=== PATIENT | female | born 1950 | race Caucasian/White ===

== ENCOUNTER 2016-12-31 12:28 | Emergency (ER) | payer MEDICARE, MEDICAID ==
--- NOTE | 2016-12-31 13:04 | Emergency Department Record ---
History of Present Illness - General Chief complaint: Fatigue and Weakness Stated complaint: WEAKNESS Time Seen by Provider: 12/31/16 12:51 Source: Patient, Family Mode of Arrival: Wheelchair Limitations: No limitations - History of Present Illness Initial comments: 66 yo female presents with weakness and sweats. She denies fever. She states she was seen by her outpatient visiting physician yesterday and was told to go to the hospital immediately due to abnormal blood tests. The patient and significant other are unsure of the abnormal test be they believe it concerns infection. She is a smoker with a cough. No nausea, vomiting, diarrhea, rash, swelling, abdominal pain, chest pain. Her PCP is Dr Carr. Complaint: Generalized weakness Onset/Timin -: Days(s) Location: Generalized Consistency: Constant Improves with: None Associated Symptoms: Diaphoresis, Headaches, Nausea/vomiting, Other - [place] Coma Scale Eye Response: (4) Open spontaneously Motor Response: (6) Obeys commands Verbal Response: (5) Oriented [place] Total: 15 - Related Data Home Medications Medication Instructions Recorded Confirmed Last Taken Duloxetine HCl 60 mg PO QHS 09/16/15 12/31/16 12/30/16 Gabapentin 300 mg PO BID 09/16/15 12/31/16 12/31/16 Omeprazole [Prilosec] 20 mg PO BID 09/16/15 12/31/16 12/31/16 Ropinirole HCl [Requip] 1 mg PO QHS 09/16/15 12/31/16 12/30/16 Simvastatin [Zocor] 40 mg PO QHS 09/16/15 12/31/16 12/30/16 Melatonin 10 mg PO QHS 10/10/15 12/31/16 12/30/16 Albuterol Sulfate 0.083% [Neb] 3 ml NEB .EVERY 4-6 HOURS PRN 12/02/15 12/31/16 Unknown Hydrocodone/Acetaminophen [[place] 1 tab PO Q6H PRN 12/02/15 12/31/16 12/31/16 5mg/325mg] Loperamide HCl [Immodium] 2 mg PO TID PRN 12/02/15 12/31/16 07/03/16 Magnesium Oxide [[place]] 500 mg PO TID 12/02/15 12/31/16 12/02/15 Benazepril HCl [Lotensin] 20 mg PO DAILY 07/03/16 12/31/16 12/31/16 Metoprolol Succinate 25 mg PO DAILY 07/03/16 12/31/16 12/31/16 Previous Rx's Medication Instructions Recorded Amlodipine Besylate [Norvasc] 10 mg PO DAILY #30 tablet 12/07/15 Cyanocobalamin (Vitamin B-12) 100 mcg PO DAILY #1 tab 07/05/16 [Vitamin B-12] Folic Acid 1 mg PO DAILY #1 tablet 07/05/16 Prednisone [Prednisone 20Mg] 60 mg PO DAILY #9 tab 07/05/16 Thiamine Mononitrate [Vitamin B-1] 100 mg PO BID #2 tablet 07/05/16 Thiamine Mononitrate [Vitamin B-1] 100 mg PO DAILY #4 tablet 07/05/16 Amoxicillin/Potassium Clav 1 each PO BID #14 tablet 12/31/16 [Augmentin 875Mg/125Mg] Allergies Allergy/AdvReac Type Severity Reaction Status Date / Time aspirin AdvReac Unknown VOMITING Verified 07/03/16 23:22 NSAIDS (Non-Steroidal AdvReac Unknown VOMITING Verified 07/03/16 23:22 Anti-Inflamma Travel Screening - Travel/Exposure Within Last 30 Days Have you traveled within the last 30 days?: No - Travel/Exposure Within Last Year Have you traveled outside the [place] in the last year?: No - Additonal Travel Details Have you been exposed to anyone with a communicable illness?: No - Travel Symptoms Symptom Screening: None Review of Systems Constitutional: Reports: Chills, Night sweats, Weakness. Denies: Fever Eyes: Denies: Eye discharge, Eye pain, Photophobia, Vision change ENT: Denies: Congestion, Throat pain Respiratory: Reports: Cough, Wheezes Cardiovascular: Denies: Chest pain, Palpitations, Syncope Endocrine: Reports: Fatigue Gastrointestinal: Denies: Abdominal pain, Diarrhea, Nausea, Vomiting Genitourinary: Denies: Dyspareunia, Dysuria, Urgency Musculoskeletal: Denies: Arthralgia, Back pain, Neck pain Skin: Denies: Bruising, Change in color, Rash Neurological: Reports: Weakness. Denies: Headache, Numbness Psychiatric: Denies: Anxiety Hematological/Lymphatic: Denies: Anemia, Blood Clots, Easy bleeding, Easy bruising, Swollen glands Past Medical History - SOCIAL HISTORY Smoking Status: Current every day smoker - RESPIRATORY Hx Respiratory Disorders: Yes Hx Asthma: Yes Hx COPD: Yes Hx Sleep Apnea: Yes Hx of CPAP: Yes - CARDIOVASCULAR Hx Cardio Disorders: Yes Hx Hypertension: Yes Comment:: high cholesterol - NEURO Hx Neuro Disorders: Yes Hx Dizziness: Yes Hx Neuropathy: Yes (LLE) - GI Hx GI Disorders: Yes Hx GI Bleed: Yes Hx Reflux: Yes Hx Nausea/Vomiting: Yes Hx Ulcer: Yes - Hx Genitourinary Disorders: No Comment:: incontinence - stress and urge - ENDOCRINE Hx Endocrine Disorders: No Hx Diabetes: No Hx Thyroid Disease: No - MUSCULOSKELETAL Hx Musculoskeletal Disorders: Yes Hx Arthritis: Yes Hx Back Injury: Yes Comment:: restless legs/Lupus - PSYCH Hx Psych Problems: Yes Hx Depression: Yes - HEMATOLOGY/ONCOLOGY Hx Hematology/Oncology Disorders: Yes Hx Cancer: Yes ("vaginal" carcinoma, colon) Hx Chemotherapy: No Hx Radiation Therapy: No Hx Blood Transfusions: Yes (as a child) Family Medical History Any Significant Family History?: No Hx Anxiety: Brother/Sister Hx Cancer: Father, Mother, Brother/Sister Hx Dementia: Brother/Sister Hx Depression: Brother/Sister Hx Diabetes: Brother/Sister Hx Heart Disease: Mother Hx HTN: Mother Hx Resp Disorders: Mother, Brother/Sister Hx Stroke: Brother/Sister Physical Exam - General General Appearance: Alert, Oriented x3, Cooperative, No acute distress Limitations: No limitations - Head Head exam: Normal inspection - Eye Eye exam: Normal appearance, PERRL. negative: Conjunctival injection, Periorbital swelling - ENT ENT exam: Normal exam, Mucous membranes moist Ear exam: Normal external inspection Nasal Exam: Normal inspection Mouth exam: Normal external inspection Teeth exam: Normal inspection Throat exam: Normal inspection - Neck Neck exam: Normal inspection, Full ROM. negative: Tenderness - Respiratory Respiratory exam: Decreased breath sounds, Wheezes. negative: Normal lung sounds bilaterally - Cardiovascular Cardiovascular Exam: Regular rate, Normal rhythm, Normal heart sounds - GI/Abdominal GI/Abdominal exam: Soft. negative: Distended, Tenderness - Rectal Rectal exam: Deferred - exam: Deferred - Extremities Extremities exam: Normal inspection, Full ROM, Normal capillary refill. negative: Pedal edema, Tenderness - Back Back exam: Reports: Normal inspection, Full ROM. Denies: CVA tenderness (R), CVA tenderness (L), Muscle spasm, Rash noted, Tenderness - Neurological Neurological exam: Alert, Normal gait, Oriented X3. negative: Altered - Psychiatric Psychiatric exam: Normal affect, Normal mood. negative: Agitated, Anxious - Skin Skin exam: Dry, Intact, Normal color, Warm Course Vital Signs 12/31/16 12:47 Temperature 97.3 F L Pulse Rate 93 H Respiratory 16 Rate Blood Pressure 113/66 Pulse Ox 95 - Reevaluation(s) Reevaluation #1: Dr Carr the patients visiting physician was called. No answer. Message left. [phone] No recent labs or cultures on our system The patient is unaware of the specific tests performed or where the tests were performed. I reviewed the [facility] information site and was unable to find any current results. [facility] [place] have recent results on the patient 12/31/16 13:05 12/31/16 13:13 12/31/16 13:24 Reevaluation #2: I SW a medical center representative at [facility]. The patient had a CBC with diff, BNP, and a Uric acid performed on the the (). She does not have access to the results. No one in the lab was available. I left a message with the lab to obtain the results. No call back from the patient's PCP at this point in time from earlier message. The patient is comfortable, no distress, no clinical findings suggesting an acute process. She is afebrile, not hypoxic, no hypotensive or tachycardic. 12/31/16 14:15 12/31/16 14:20 Reevaluation #3: The patient's CBC was reviewed Mild anemia of 10.5 which is near her baseline. WBC is 5. The differential is unremarkable. No sign of acute infection on the CBC. No bands or immature cells noted. The CMP with mild hyponatremia of 131 and K 5.8 but with normal GFR and renal function (She was a difficult draw and may represent some hemolysis), mild increase in LFT She has a history of alcohol use. 12/31/16 14:24 Reevaluation #4: At this point I have exhausted possibilities for obtaining the labs from 12/28. The is not sign of infection with the patient except her cough. No fever. No sign of SBI. No indication that she will require admission to the hospital. She will be placed on antibiotics for the cough. She is to call Dr Carr tomorrow for close follow up. No called back from the [facility] lab or Dr Carr today. The chest XR demonstrates a RUL mass. One was noted in September on CT scan. The patient states she was referred to pulmonary then but did not go. I recommended again discussing this with her PCP and getting another referral as this is likely a cancer. They will call their PCP tomorrow. She is stable at PR without acute findings to recommend admission. 12/31/16 15:03 12/31/16 15:16 Medical Decision Making - Lab Data Result diagrams: 12/31/16 14:00 12/31/16 14:00 Disposition Disposition: Discharge Clinical Impression: Bronchitis, Lung mass Disposition: Home, Self-Care Condition: (1) Good Instructions: Acute Bronchitis (ED), Lung Cancer (ED) Additional Instructions: Call visiting physicians in the morning to discuss the results of your tests and the previous tests that had concerned your doctor Return if you have fever or any new concerns Augmentin twice daily You will need a referral to see a specialist regarding the lung mass you have in the right lung as this could be cancer Prescriptions: Amoxicillin/Potassium Clav [Augmentin 875Mg/125Mg] 1 each PO BID #14 tablet Forms: Patient Portal Access Time of Disposition: 15:13
[2016-12-31] MEDS: IPRATROPIUM/ALBUTEROL (0.5MG/3MG) NEB INH ONE ×2 (13:16→13:23)
[2016-12-31 14:06] LABS: BASO % 1.1 % (0-6); EOS % 2.5 % (0-6); GRAN % 75.9 % (47-80); HEMATOCRIT 31.7 % (35.0-47.0); HEMOGLOBIN 10.5 gm/dl (11.6-16.0); LYMPH % 11.3 % (16-45); MEAN CELL VOLUME 93.8 fl (81-97); MEAN CORPUSCULAR HGB CONC 33.1 g/dl (32-36); MEAN PLATELET VOLUME 9.3 fl (7.4-10.4); MONO % 9.2 % (0-9); PLATELET COUNT 301 K/uL (130-400); RED BLOOD COUNT 3.38 M/uL (3.80-5.40); RED CELL DISTRIBUTION WIDTH 19.2 % (11.5-14.5); WHITE BLOOD COUNT W/O DIFF 5.7 K/uL (4.2-12.2)
[2016-12-31 14:19] LABS: ALB/GLOB RATIO 1.3 (1.1-1.8); ALBUMIN 4.2 gm/dL (3.5-5.0); ALKALINE PHOSPHATASE 160 U/L (38-126); ALT/SGPT 68 U/L (9-52); AST/SGOT 124 U/L (14-36); BILIRUBIN,TOTAL 0.79 mg/dL (0.2-1.3); BLOOD UREA NITROGEN 12 mg/dL (7-17); C-REACTIVE PROTEIN 1.5 mg/dL (0.0-0.9); CREATININE 0.8 mg/dL (0.52-1.04); EST GLOMERULAR FILTRATION RATE > 60 ml/min; GLUCOSE,RANDOM 103 mg/dL (70-110); TOTAL PROTEIN 7.5 gm/dL (6.3-8.2)
[2016-12-31 14:26] LABS: URINE APPEARANCE CLEAR; URINE BILIRUBIN NEGATIVE (NEGATIVE); URINE BLOOD NEGATIVE (NEGATIVE); URINE COLOR YELLOW; URINE GLUCOSE (UA) NEGATIVE (NEGATIVE); URINE KETONE TRACE (NEGATIVE); URINE LEUKOCYTE ESTERASE NEGATIVE (NEGATIVE); URINE NITRITE NEGATIVE (NEGATIVE); URINE PROTEIN NEGATIVE (NEGATIVE); URINE UROBILINOGEN 0.2 E.U./dL (0.20 - 1.00)
[2016-12-31] MEDS: HYDROCODONE/APAP 7.5/325MG TABLET PO ONE (14:38)
[2016-12-31 14:45] LABS: ERYTHROCYTE SEDIMENTATION RATE 34 mm/hr (0-30)
[2016-12-31] MEDS: AMOXICILLIN/POTASSIUM CLAV 875MG/125MG TABLET PO ONE (15:19)
== END 2016-12-31 15:26 | disposition home or self-care (01) ==
LOC: ER 12:28
DX: J20.9 Acute bronchitis, unspecified (principal); R91.8 Other nonspecific abnormal finding of lung field; R11.2 Nausea with vomiting, unspecified; R51 Headache; R61 Generalized hyperhidrosis; I10 Essential (primary) hypertension; J44.9 Chronic obstructive pulmonary disease, unspecified; F17.210 Nicotine dependence, cigarettes, uncomplicated
CPT/HCPCS: 99283; 99284; 85025; 85651; 86140; 80053; 81003; 71020; 94640; G0480; 80320

== ENCOUNTER 2017-03-31 15:04 | Inpatient (IN) | payer MEDICARE, MEDICAID ==
--- NOTE | 2017-03-31 15:31 | Emergency Department Record ---
History of Present Illness - General Chief complaint: Rectal bleeding Stated complaint: RECTAL BLEEDING AND VOMITING BLOOD Time Seen by Provider: 03/31/17 15:19 Source: Patient, Family Mode of Arrival: Wheelchair Limitations: No limitations - History of Present Illness Initial comments: 66 yo female presents with a concern about blood in her stools for about one week. She reports the stool is dark. She has associated abdominal pain and vomiting. She reports a history of colon [place] with [place] [facility] She states she did not have chemo. She reports some blood in the emesis as well. The pain is lower abdomen in the midline. She does not have an oncologist and is unsure of her surgeon [place] [facility] She states she has lung cancer that her doctor has not treated yet as well. Onset/Timin -: Week(s) Radiation: None Severity scale (1-10): 9 Quality: Sharp Consistency: Constant, Intermittent Improves with: None Worsens with: None Context: History of GI bleed Associated Symptoms: Other Treatments Prior to Arrival: None - Related Data Home Medications Medication Instructions Recorded Confirmed Last Taken Gabapentin 300 mg PO BID 09/16/15 03/31/17 12/31/16 Omeprazole [Prilosec] 20 mg PO BID 09/16/15 03/31/17 12/31/16 Ropinirole HCl [Requip] 1 mg PO QHS 09/16/15 03/31/17 12/30/16 Simvastatin [Zocor] 40 mg PO QHS 09/16/15 03/31/17 12/30/16 Melatonin 10 mg PO QHS 10/10/15 03/31/17 12/30/16 Albuterol Sulfate 0.083% [Neb] 3 ml NEB .EVERY 4-6 HOURS PRN 12/02/15 03/31/17 Unknown Hydrocodone/Acetaminophen [[place] 1 tab PO Q6H PRN 12/02/15 03/31/17 12/31/16 5mg/325mg] Loperamide HCl [Immodium] 2 mg PO TID PRN 12/02/15 03/31/17 07/03/16 Magnesium Oxide [[place]] 500 mg PO TID 12/02/15 03/31/17 12/02/15 Benazepril HCl [Lotensin] 20 mg PO DAILY 07/03/16 03/31/17 12/31/16 Metoprolol Succinate 25 mg PO DAILY 07/03/16 03/31/17 12/31/16 Previous Rx's Medication Instructions Recorded Amlodipine Besylate [Norvasc] 10 mg PO DAILY #30 tablet 12/07/15 Thiamine Mononitrate [Vitamin B-1] 100 mg PO BID #2 tablet 07/05/16 Allergies Allergy/AdvReac Type Severity Reaction Status Date / Time aspirin AdvReac Unknown VOMITING Verified 07/03/16 23:22 NSAIDS (Non-Steroidal AdvReac Unknown VOMITING Verified 07/03/16 23:22 Anti-Inflamma Travel Screening - Travel/Exposure Within Last 30 Days Have you traveled within the last 30 days?: No Review of Systems Constitutional: Reports: Weakness. Denies: Chills, Fever Eyes: Denies: Eye discharge ENT: Denies: Congestion, Throat pain Respiratory: Denies: Cough, Dyspnea, Hemoptysis, Stridor, Wheezes Cardiovascular: Denies: Chest pain, Palpitations, Syncope Endocrine: Reports: Fatigue Gastrointestinal: Reports: Abdominal pain, Hematemesis, Hematochezia, Melena, Nausea, Vomiting Genitourinary: Denies: Dysuria, Frequency, Hematuria, Urgency Musculoskeletal: Denies: Arthralgia, Back pain Skin: Denies: Bruising, Change in color, Pruritus Neurological: Denies: Headache, Numbness, Weakness Psychiatric: Denies: Anxiety Hematological/Lymphatic: Denies: Blood Clots, Easy bleeding, Easy bruising, Swollen glands Past Medical History - SOCIAL HISTORY Smoking Status: Current every day smoker Alcohol Use: Occasional Drug Use: None - RESPIRATORY Hx Respiratory Disorders: Yes Hx Asthma: Yes Hx COPD: Yes Hx Sleep Apnea: Yes Hx of CPAP: Yes - CARDIOVASCULAR Hx Cardio Disorders: Yes Hx Hypertension: Yes Comment:: high cholesterol - NEURO Hx Neuro Disorders: Yes Hx Dizziness: Yes Hx Neuropathy: Yes (LLE) - GI Hx GI Disorders: Yes Hx GI Bleed: Yes Hx Reflux: Yes Hx Nausea/Vomiting: Yes Hx Ulcer: Yes - Hx Genitourinary Disorders: No Comment:: incontinence - stress and urge - ENDOCRINE Hx Endocrine Disorders: No Hx Diabetes: No Hx Thyroid Disease: No - MUSCULOSKELETAL Hx Musculoskeletal Disorders: Yes Hx Arthritis: Yes Hx Back Injury: Yes Comment:: restless legs/Lupus - PSYCH Hx Psych Problems: Yes Hx Depression: Yes - HEMATOLOGY/ONCOLOGY Hx Hematology/Oncology Disorders: Yes Hx Cancer: Yes ("vaginal" carcinoma, colon) Hx Chemotherapy: No Hx Radiation Therapy: No Hx Blood Transfusions: Yes (as a child) Family Medical History Any Significant Family History?: Yes Hx Anxiety: Brother/Sister Hx Cancer: Father, Mother, Brother/Sister Hx Dementia: Brother/Sister Hx Depression: Brother/Sister Hx Diabetes: Brother/Sister Hx Heart Disease: Mother Hx HTN: Mother Hx Resp Disorders: Mother, Brother/Sister Hx Stroke: Brother/Sister Physical Exam - General General Appearance: Alert, Oriented x3, Cooperative, No acute distress Limitations: No limitations - Head Head exam: Normal inspection - Eye Eye exam: Normal appearance. negative: Conjunctival injection, Periorbital swelling - ENT ENT exam: Normal exam Ear exam: Normal external inspection Nasal Exam: Normal inspection Mouth exam: Normal external inspection - Neck Neck exam: Normal inspection - Respiratory Respiratory exam: Normal lung sounds bilaterally. negative: Respiratory distress - Cardiovascular Cardiovascular Exam: Regular rate, Normal rhythm, Normal heart sounds Peripheral Pulses: 2+: Radial (R), Radial (L) - GI/Abdominal GI/Abdominal exam: Soft, Tenderness (tender lower, midline to left, soft abdomen ). negative: Distended, Guarding, Hernia - Rectal Rectal exam: Black stool, Heme (+) stool. negative: Fecal impaction, Hemorrhoids, Mass, Tenderness - exam: Deferred - Extremities Extremities exam: Normal inspection, Full ROM, Normal capillary refill. negative: Tenderness - Back Back exam: Reports: Normal inspection, Full ROM. Denies: Muscle spasm, Rash noted, Tenderness - Neurological Neurological exam: Alert, Normal gait, Oriented X3 - Psychiatric Psychiatric exam: Normal affect, Normal mood - Skin Skin exam: Dry, Intact, Normal color, Warm Course Vital Signs 03/31/17 15:16 Temperature 98.4 F Pulse Rate 88 Respiratory 20 Rate Blood Pressure 128/73 Pulse Ox 97 - Reevaluation(s) Reevaluation #1: DC Summary 03/05/16 reviewed. sigoid mass removal. Dr Quesada. 03/31/17 17:15 Reevaluation #2: Abdominal CT was reviewed Known abdominal aneurysm with minimal change from prior, hiatel hernia, fatty infiltration of the liver, No free fluid or free air. 03/31/17 18:29 Reevaluation #3: I discussed the case with Heike Darnell of the admission service The patient will be a full admit with serial CBC's, Protonix, GI and General surgery consult Sunday. 03/31/17 18:35 Medical Decision Making - Lab Data Result diagrams: 04/01/17 05:30 03/31/17 15:45 Disposition Disposition: Admit Clinical Impression: DNR (do not resuscitate) GI bleed Qualifiers: GI bleed type/associated pathology: melena Qualified Code(s): K92.1 - Melena Disposition: Still a Patient at [facility] Decision to Admit: Admit from ER Decision to Admit Date: 03/31/17 Decision to Admit Time: 18:37 Condition: (2) Stable Time of Disposition: 18:37 Quality - Quality Measures Quality Measures: N/A - Blood Pressure Screening View Details: Yes Blood Pressure Classification: Pre-Hypertensive BP Reading Systolic Measurement: 128 Diastolic Measurement: 73 Screening for High Blood Pressure: < Pre-Hypertensive BP, F/U Documented > [ [id number]] Pre-Hypertensive Follow-up Interventions: Referral to alternative/primary care provider.
[2017-03-31 15:58] LABS: BASO % 0.7 % (0-6); EOS % 7.8 % (0-6); GRAN % 66.7 % (47-80); HEMOGLOBIN 8.5 gm/dl (11.6-16.0); LYMPH % 17.7 % (16-45); MEAN CELL VOLUME 87.8 fl (81-97); MEAN CORPUSCULAR HEMOGLOBIN 26.6 pg (27-33); MEAN CORPUSCULAR HGB CONC 30.4 g/dl (32-36); MEAN PLATELET VOLUME 9.3 fl (7.4-10.4); MONO % 7.1 % (0-9); PLATELET COUNT 374 K/uL (130-400); RED BLOOD COUNT 3.19 M/uL (3.80-5.40); RED CELL DISTRIBUTION WIDTH 16.7 % (11.5-14.5); WHITE BLOOD COUNT W/O DIFF 6.9 K/uL (4.2-12.2)
[2017-03-31 16:09] LABS: ALB/GLOB RATIO 1.2 (1.1-1.8); ALKALINE PHOSPHATASE 104 U/L (38-126); ALT/SGPT 51 U/L (9-52); ANION GAP 8.6 (7-16); AST/SGOT 56 U/L (14-36); BILIRUBIN,TOTAL 0.86 mg/dL (0.2-1.3); BLOOD UREA NITROGEN 23 mg/dL (7-17); CARBON DIOXIDE 24.4 mmol/L (22-30); CREATININE 0.8 mg/dL (0.52-1.04); EST GLOMERULAR FILTRATION RATE > 60 ml/min; GLUCOSE,RANDOM 119 mg/dL (70-110); TOTAL PROTEIN 7.3 gm/dL (6.3-8.2)
[2017-03-31 16:11] LABS: INR 1.03; PARTIAL THROMBOPLASTIN TIME 24.2 SECONDS (24.5-39.1); PROTHROMBIN TIME (PATIENT) 11.1 SECONDS (9.5-12.1)
[2017-03-31] MEDS ORDERED: ONDANSETRON HCL IV 4 MG/2 ML VIAL IVP ONE (16:26)
[2017-03-31] MEDS ORDERED: MORPHINE SULFATE 5 MG/ML PFS IVP ONE (16:26)
[2017-03-31 16:36] LABS: ABO GROUP A; ANTIBODY SCREEN NEGATIVE (NEGATIVE); RH TYPE POSITIVE
[2017-03-31] MEDS ORDERED: ONDANSETRON HCL IV 4 MG/2 ML VIAL IVP PRN (19:41)
[2017-03-31] MEDS ORDERED: ALBUTEROL SULFATE (0.083%) 2.5 MG/3 ML NEB INH PRN (19:41)
[2017-03-31] MEDS ORDERED: 0.9 % SODIUM CHLORIDE 1000ML 1,000 ML IV PRN (19:41)
[2017-03-31] MEDS: HYDROCODONE/APAP 5/325MG TABLET PO PRN (20:42)
[2017-03-31] MEDS: NICOTINE 21 MG/24 HOUR PATCH TD SCH (20:43)
[2017-03-31] MEDS: PANTOPRAZOLE SODIUM IV 40 MG VIAL IV SCH (20:43)
[2017-03-31] MEDS: ROPINIROLE HCL 1 MG TABLET PO SCH (21:57)
[2017-03-31] MEDS: THIAMINE MONONITRATE 100 MG TABLET PO SCH (21:57)
[2017-03-31] MEDS: GABAPENTIN 300 MG CAPSULE PO SCH (21:57)
[2017-03-31] MEDS: SIMVASTATIN 20 MG TABLET PO SCH (21:58)
[2017-04-01] MEDS: HYDROCODONE/APAP 5/325MG TABLET PO PRN ×4 (02:30→21:24)
[2017-04-01 05:54] LABS: HEMATOCRIT 24.5 % (35.0-47.0); HEMOGLOBIN 7.3 gm/dl (11.6-16.0); MEAN CELL VOLUME 87.8 fl (81-97); MEAN CORPUSCULAR HGB CONC 29.8 g/dl (32-36); MEAN PLATELET VOLUME 9.3 fl (7.4-10.4); PLATELET COUNT 329 K/uL (130-400); RED BLOOD COUNT 2.79 M/uL (3.80-5.40); RED CELL DISTRIBUTION WIDTH 16.4 % (11.5-14.5); WHITE BLOOD COUNT W/O DIFF 6.2 K/uL (4.2-12.2)
[2017-04-01 06:03] LABS: MEAN CORPUSCULAR HEMOGLOBIN 26.1 pg (27-33)
[2017-04-01 06:23] LABS: HYPOCHROMIA 2+; PLATELET ESTIMATE NORMAL (NORMAL)
[2017-04-01] MEDS: BENAZEPRIL 20 MG TABLET PO SCH (09:36)
[2017-04-01] MEDS: GABAPENTIN 300 MG CAPSULE PO SCH ×2 (09:36→21:23)
[2017-04-01] MEDS: METOPROLOL SUCC 25 MG TAB.ER PO SCH (09:36)
[2017-04-01] MEDS: PANTOPRAZOLE SODIUM IV 40 MG VIAL IV SCH ×2 (09:37→21:22)
[2017-04-01] MEDS: THIAMINE MONONITRATE 100 MG TABLET PO SCH ×2 (09:37→21:23)
--- NOTE | 2017-04-01 10:06 | History & Physical ---
History of Present Illness - Date of Service Date of Service for History & Physical: 04/01/17 - History of Present Illness Admitting Diagnosis: GI bleed History of Present Illness: 66yo female with CC of dark black stools, nausea/vomiting and abdominal pain. She has history of alcoholism, COPD, lupus, htn, SHANNON, HLD, GERD, hiatal hernia, arthritis, depression, RLS, chronic low back pain, and is current pack a day smoker. She has had multiple hospitalizations in the past year for alcohol intoxication , acute renal failure 2/2 hypovolemic shock, COPD exacerbation. During these hospitalizations she was found to have a rectosigmoid mass that was rese[place] [address] Quesada. She was also found to have a soft tissue mass in the RUL in Sep 2016 that has not been addressed. Patient presented to the ED yesterday with complaints of nausea with vomiting and lower abdominal pain. She had been having dark stools for about a week prior and noted blood in her vomit as well. While in the ED, she had bp of 128/73 with pulse of 88bpm. oxygen saturation was 97% and she was afebrile. Her hgb was noted to be 8.5 which is below her baseline of about 10. CMP showed electrolyte abnormalities. sodium was 131, potassium 5.8, chloride low at 96. BUN and Cr were within normal ranges. Her LFT 's were elevated with aST of 124, ALT 68 and alk phos 160. She was noted to have dark stool in rectal vault. CT abdomen showed stable aortic aneurysm, hiatal hernia and fatty liver disease. no new processes were noted. She was admitted for GI bleed with electrolyte abnormalities. 04/01/17- Patient states the nausea and vomiting have resolved today. She has had no further episodes of vomiting, or passage of dark or bloody stools. Patient states she had been drinking about 3 beers daily up until about a week ago when she started having nausea and vomiting. She says on of last week when she vomited there was bright red blood but also "coffee grounds." She had actually called EMS on Sunday but decided she didn't want to be brought to the ED. Her needed to go grocery shopping so he couldn't bring her in until Sunday morning. She is currently feeling a little light-headed when she gets up quickly but denies any headache, shortness of breath, muscle cramps, chest pain. She reports an epigastric burning type pain. She says it feels like the ulcer she had previously. Patient states she was supposed to have a pulmonary referral for the RUL mass. She says the central office mechanic of visiting physicians, Marleni, has not contacted them about an appointment. PCP: Dr. Carr, visiting physicians Travel Screening - Travel/Exposure Within Last 30 Days Have you traveled within the last 30 days?: No - Travel/Exposure Within Last Year Have you traveled outside the [place] in the last year?: No - Additonal Travel Details Have you been exposed to anyone with a communicable illness?: No - Travel Symptoms Symptom Screening: None Review of Systems Constitutional: Reports: Weakness (generalized). Denies: Chills, Fever Eyes: Denies: Eye discharge ENT: Denies: Congestion, Throat pain Respiratory: Denies: Cough, Dyspnea, Hemoptysis, Stridor, Wheezes Cardiovascular: Denies: Chest pain, Palpitations, Syncope Endocrine: Reports: Fatigue Gastrointestinal: Reports: Abdominal pain, Hematemesis, Hematochezia, Melena, Nausea, Vomiting Genitourinary: Denies: Dysuria, Frequency, Hematuria, Urgency Musculoskeletal: Denies: Arthralgia, Back pain Skin: Denies: Bruising, Change in color, Pruritus Neurological: Denies: Headache, Numbness, Weakness Psychiatric: Denies: Anxiety Hematological/Lymphatic: Denies: Blood Clots, Easy bleeding, Easy bruising, Swollen glands Past Medical History - SOCIAL HISTORY Smoking Status: Current every day smoker Alcohol Use: Occasional Drug Use: None - RESPIRATORY Hx Respiratory Disorders: Yes Hx Asthma: Yes Hx COPD: Yes Hx Sleep Apnea: Yes Hx of CPAP: Yes - CARDIOVASCULAR Hx Cardio Disorders: Yes Hx Hypertension: Yes Comment:: high cholesterol - NEURO Hx Neuro Disorders: Yes Hx Dizziness: Yes Hx Neuropathy: Yes (LLE) - GI Hx GI Disorders: Yes Hx GI Bleed: Yes Hx Reflux: Yes Hx Nausea/Vomiting: Yes Hx Ulcer: Yes - Hx Genitourinary Disorders: No Comment:: incontinence - stress and urge - ENDOCRINE Hx Endocrine Disorders: No Hx Diabetes: No Hx Thyroid Disease: No - MUSCULOSKELETAL Hx Musculoskeletal Disorders: Yes Hx Arthritis: Yes Hx Back Injury: Yes Comment:: restless legs/Lupus - PSYCH Hx Psych Problems: Yes Hx Depression: Yes - HEMATOLOGY/ONCOLOGY Hx Hematology/Oncology Disorders: Yes Hx Cancer: Yes ("vaginal" carcinoma, colon) Hx Chemotherapy: No Hx Radiation Therapy: No Hx Blood Transfusions: Yes (as a child) Family Medical History Any Significant Family History?: Yes Hx Anxiety: Brother/Sister Hx Cancer: Father, Mother, Brother/Sister Hx Dementia: Brother/Sister Hx Depression: Brother/Sister Hx Diabetes: Brother/Sister Hx Heart Disease: Mother Hx HTN: Mother Hx Resp Disorders: Mother, Brother/Sister Hx Stroke: Brother/Sister H&P Meds/Allergies - Allergies Allergies: Allergies Allergy/AdvReac Type Severity Reaction Status Date / Time aspirin AdvReac Unknown VOMITING Verified 07/03/16 23:22 NSAIDS (Non-Steroidal AdvReac Unknown VOMITING Verified 07/03/16 23:22 Anti-Inflamma - Home Medications Home Medications Medication Instructions Recorded Confirmed Last Taken Gabapentin 300 mg PO BID 09/16/15 03/31/17 12/31/16 Omeprazole [Prilosec] 20 mg PO BID 09/16/15 03/31/17 12/31/16 Ropinirole HCl [Requip] 1 mg PO QHS 09/16/15 03/31/17 12/30/16 Simvastatin [Zocor] 40 mg PO QHS 09/16/15 03/31/17 12/30/16 Melatonin 10 mg PO QHS 10/10/15 03/31/17 12/30/16 Albuterol Sulfate 0.083% [Neb] 3 ml NEB .EVERY 4-6 HOURS PRN 12/02/15 03/31/17 Unknown Hydrocodone/Acetaminophen [[place] 1 tab PO Q6H PRN 12/02/15 03/31/17 12/31/16 5mg/325mg] Loperamide HCl [Immodium] 2 mg PO TID PRN 12/02/15 03/31/17 07/03/16 Magnesium Oxide [[place]] 500 mg PO TID 12/02/15 03/31/17 12/02/15 Benazepril HCl [Lotensin] 20 mg PO DAILY 07/03/16 03/31/17 12/31/16 Metoprolol Succinate 25 mg PO DAILY 07/03/16 03/31/17 12/31/16 Previous Rx's Medication Instructions Recorded Amlodipine Besylate [Norvasc] 10 mg PO DAILY #30 tablet 12/07/15 Thiamine Mononitrate [Vitamin B-1] 100 mg PO BID #2 tablet 07/05/16 - Active Medications Active Medications: Current Medications Hydrocodone Bitart/Acetaminophen ([place] 5mg/325mg) 1 each PO Q6H PRN PRN Reason: Pain - General Last Admin: 04/01/17 08:57 Dose: 1 each Albuterol Sulfate () 2.5 mg INH Q4HR PRN PRN Reason: DIFFICULTY IN BREATHING Benazepril HCl (Lotensin) 20 mg PO DAILY [facility] Last Admin: 04/01/17 09:36 Dose: 20 mg Gabapentin (Neurontin) 300 mg PO BID [facility] Last Admin: 04/01/17 09:36 Dose: 300 mg Sodium Chloride () 1,000 mls @ 75 mls/hr IV .[id number] PRN PRN Reason: LARGE VOLUME IV Last Admin: 04/01/17 08:58 Dose: 75 mls/hr Metoprolol Succinate (Toprol Xl) 25 mg PO DAILY [facility] Last Admin: 04/01/17 09:36 Dose: 25 mg Nicotine (Nicotine 21mg) 1 patch TD Q24H [facility] Last Admin: 03/31/17 20:43 Dose: 1 patch Ondansetron HCl (Zofran) 4 mg IVP Q4H PRN PRN Reason: NAUSEA Last Admin: 04/01/17 02:00 Dose: 4 mg Pantoprazole Sodium (Protonix Iv) 40 mg IV DAILY [facility] Last Admin: 04/01/17 09:37 Dose: 40 mg Ropinirole HCl (Requip) 1 mg PO QHS [facility] Last Admin: 03/31/17 21:57 Dose: 1 mg Simvastatin (Zocor) 40 mg PO QHS [facility] Last Admin: 03/31/17 21:58 Dose: 40 mg Physical Exam - Vital Signs Vital Signs: Vital Signs - Last 24 Hrs Temp Pulse Resp BP Pulse Ox 04/01/17 06:00 98.6 F 96 H 18 138/80 98 03/31/17 20:58 18 03/31/17 19:41 98.6 F 100 H 26 H 144/80 98 - General General Appearance: Alert, Oriented x3, Cooperative, No acute distress Limitations: No limitations - Head Head exam: Normal inspection - Eye Eye exam: Normal appearance. negative: Conjunctival injection, Periorbital swelling - ENT ENT exam: Normal exam Ear exam: Normal external inspection Nasal Exam: Normal inspection Mouth exam: Normal external inspection - Neck Neck exam: Normal inspection - Respiratory Respiratory exam: Normal lung sounds bilaterally. negative: Respiratory distress - Cardiovascular Cardiovascular Exam: Regular rate, Normal rhythm, Normal heart sounds Peripheral Pulses: 2+: Radial (R), Radial (L) - GI/Abdominal GI/Abdominal exam: Soft, Tenderness (mild TTP of the epigastric region). negative: Distended, Guarding, Hernia - Rectal Rectal exam: Black stool, Heme (+) stool. negative: Fecal impaction, Hemorrhoids, Mass, Tenderness - exam: Deferred - Extremities Extremities exam: Normal inspection, Full ROM, Normal capillary refill. negative: Tenderness - Back Back exam: Reports: Normal inspection, Full ROM. Denies: Muscle spasm, Rash noted, Tenderness - Neurological Neurological exam: Alert, Normal gait, Oriented X3 - Psychiatric Psychiatric exam: Normal affect, Normal mood - Skin Skin exam: Dry, Intact, Normal color, Warm Results - Labs Result Diagrams: 04/01/17 15:20 03/31/17 15:45 Labs Last 24 Hours: Laboratory Results - last 24 hr 04/01/17 05:30 WBC 6.2 RBC 2.79 L Hgb 7.3 L Hct 24.5 L MCV 87.8 MCH 26.1 L MCHC 29.8 L RDW 16.4 H Plt Count 329 MPV 9.3 Neutrophils % 63.0 Eosinophils % Not Reportable Basophils % Not Reportable Lymphocytes 20.0 Monocytes 4.0 Platelet Estimate Normal Hypochromasia 2+ Eosinophil Count 13.0 H VTE H&P Assessment - Risk for VTE Risk for VTE: Yes Risk Level: High Risk Assessment Date: 04/01/17 Risk Assessment Time: 19:57 VTE Orders Placed or Will Be Placed: No VTE Reason for No Prophylaxis: Contraindicated Plan - Inpatient Certification Inpatient Certification: Admit to inpatient care: Based on my medical assessment, after consideration of patient's risk factors (age, co-morbidities and patient presenting symptoms and acuity), I expect that this patient will remain in the hospital greater than or equal to two midnights and that the services needed warrant inpatient care because: Patient Risk Factors: [GI bleed, anemia due to acute blood loss, lung mass, history of colon cancer] Estimated length of stay: [72-96H] The patient may reasonably be expected to be discharged or transferred to a hospital within 96 hours after admission to [facility]. Services needed: [Blood transfusion, EGD/Cscope, general surgery and GI consults ] Post hospital care (if known): [] I certify that my determination is in accordance with my understanding of Medicare requirements for reasonable and necessary inpatient services. 04/01/17 10:09 - Detailed Diagnosis and Plan (1) GI bleed Current Visit: Yes Status: Acute Qualifiers: GI bleed type/associated pathology: melena Qualified Code(s): K92.1 - Melena Base Code: K92.2 - GASTROINTESTINAL HEMORRHAGE, UNSPECIFIED Comment: 04/01/17- hgb dropped to 7.3 overnight from 8.5. has been receiving IVF overnight which may have resulted in dilutional decrease as wbc and platelets dropped as well. Patient denies any further episodes of dark or bloody stools or bloody emesis. -type and screen completed. Will continue to monitor for further signs of bleeding and recheck hgb this afternoon to determine if patient will need transfusion. currently sinus rhthym with normal bp. will saline lock to avoid further dilution. -GI consulted for upper/lower scope. may need to consult surgery based on scope results. -vitals q8H -will start protonix 40mg IV BId and carafate 1gm PO QID -repeat labs at 1600 and 0600 (2) Electrolyte imbalance Current Visit: No Status: Acute Base Code: E87.8 - OTH DISORDERS OF ELECTROLYTE AND FLUID BALANCE, NEC Comment: 04/01/17- resolving. Sodium up to 137, potassium down to 4.4, chloride up to 104. -tolerating clear liquid diet. will saline lock and repeat labs qam (3) Lung mass Current Visit: No Status: Acute Base Code: R91.8 - OTHER NONSPECIFIC ABNORMAL FINDING OF LUNG FIELD Comment: 04/01/17- RUL soft tissue mass 3.8 x 4.8 x 5.[address] of the chest back in September of 2016. CT was ordered by her PCP but appears has not been followed up. concern for primary lung neoplasm vs metastasis with h/o rectosigmoid mass removed in june 2016. -will try and contact Visiting Physician tomorrow when the open to see if pulmonology referral was placed. if no active referral will try and get her set up with pulnoemi apt. prior to discharge (4) Code status needs review Current Visit: Yes Status: Acute Base Code: [id number] - Comment: 04/01/17- Patient currently listed as full code but has been DNR at previous admission. Will discuss with patient her desired code status. (5) DVT prophylaxis Current Visit: Yes Status: Acute Base Code: [id number] - Comment: 04/01/17- Patient is high risk for DVt with age, restricted mobility, and likely active malignancy -will add SCD's while in bed as lovenox contraindicated with active GI bleed
[2017-04-01] MEDS: ROPINIROLE HCL 1 MG TABLET PO SCH ×2 (13:37→21:23)
[2017-04-01] MEDS: SUCRALFATE 1 G/10 ML UD PO SCH ×3 (13:44→21:23)
[2017-04-01 15:32] LABS: BASO % 0.6 % (0-6); EOS % 9.9 % (0-6); GRAN % 64.1 % (47-80); HEMATOCRIT 24.2 % (35.0-47.0); HEMOGLOBIN 7.2 gm/dl (11.6-16.0); LYMPH % 17.5 % (16-45); MEAN CELL VOLUME 88.6 fl (81-97); MEAN CORPUSCULAR HGB CONC 29.8 g/dl (32-36); MEAN PLATELET VOLUME 8.9 fl (7.4-10.4); MONO % 7.9 % (0-9); PLATELET COUNT 321 K/uL (130-400); RED BLOOD COUNT 2.73 M/uL (3.80-5.40); RED CELL DISTRIBUTION WIDTH 16.1 % (11.5-14.5)
[2017-04-01 15:33] LABS: MEAN CORPUSCULAR HEMOGLOBIN 26.3 pg (27-33)
[2017-04-01] MEDS: NICOTINE 21 MG/24 HOUR PATCH TD SCH (21:22)
[2017-04-01] MEDS: SIMVASTATIN 20 MG TABLET PO SCH (21:23)
[2017-04-02 06:18] LABS: HEMATOCRIT 24.8 % (35.0-47.0); HEMOGLOBIN 7.5 gm/dl (11.6-16.0); MEAN CELL VOLUME 88.6 fl (81-97); MEAN CORPUSCULAR HGB CONC 30.2 g/dl (32-36); MEAN PLATELET VOLUME 8.9 fl (7.4-10.4); PLATELET COUNT 308 K/uL (130-400); RED CELL DISTRIBUTION WIDTH 16.3 % (11.5-14.5); WHITE BLOOD COUNT W/O DIFF 4.9 K/uL (4.2-12.2)
[2017-04-02 06:20] LABS: MEAN CORPUSCULAR HEMOGLOBIN 26.7 pg (27-33)
[2017-04-02 06:31] LABS: ALB/GLOB RATIO 1.1 (1.1-1.8); ALBUMIN 3.4 gm/dL (3.5-5.0); ALKALINE PHOSPHATASE 100 U/L (38-126); ALT/SGPT 48 U/L (9-52); ANION GAP 9.8 (7-16); AST/SGOT 61 U/L (14-36); BILIRUBIN,TOTAL 0.87 mg/dL (0.2-1.3); BLOOD UREA NITROGEN 10 mg/dL (7-17); CARBON DIOXIDE 25.2 mmol/L (22-30); CREATININE 0.8 mg/dL (0.52-1.04); EST GLOMERULAR FILTRATION RATE > 60 ml/min; GLUCOSE,RANDOM 96 mg/dL (70-110); TOTAL PROTEIN 6.4 gm/dL (6.3-8.2)
[2017-04-02 06:38] LABS: HYPOCHROMIA 1+; PLATELET ESTIMATE NORMAL (NORMAL)
--- NOTE | 2017-04-02 08:02 | CT SCAN REPORT ---
EXAM: CT OF THE ABDOMEN AND PELVIS WITH CONTRAST HISTORY: ABDOMINAL PAIN, GI BLEED. PRIOR HYSTERECTOMY AND COLON SURGERY. BACK SURGERY AND HIP REPAIR. TECHNIQUE: Axial CT scan of the abdomen and pelvis was obtained following both oral and IV contrast administration utilizing a dose of 100 ml of Omnipaque 300 as the IV contrast. Comparison: CT of the abdomen and pelvis dated 09/16/15. FINDINGS: No definite calcified gallstones are seen within the gallbladder. There is diffuse fatty infiltration of the liver. No focal hepatic mass evident. No definite splenic mass seen with a few small splenic calcifications likely representing small calcified splenic granulomas. No definite adrenal, pancreatic, or renal mass identified. There is a relatively large hiatal hernia. Thick walled appearance of the upper stomach is nonspecific although presumably just due to incomplete distention. A similar appearance was seen previously. Mild aneurysmal dilatation of the infrarenal abdominal aorta again seen. This previously was measured at about 3.1 x 3.1 cm in AP and transverse diameters on 09/16/15 and today measures about 3.3 x 3.5 cm and so has increased slightly in the interval. There is extensive artifact in the pelvis related to the postop change involving the right hip and also related to the lumbosacral spinal fusion. This was present previously as well. The patient also noted to be postop hysterectomy. Oral contrast given has passed throughout the small bowel well into the colon with no small bowel obstruction evident. The cecum extends quite low into the pelvis. I believe the appendix is identified as a normal caliber structure with no appendicitis evident. There may be a suture line in the region of the rectosigmoid junction and correlation with the prior surgical history is suggested. No free intraperitoneal air or free intraperitoneal fluid identified. There may be old fracture deformity of the inferior pubic rami bilaterally, also present previously. IMPRESSION: 1. POSTOP CHANGES INCLUDING POSTERIOR FUSION FROM L4 TO THE SACRUM, EXTENSIVE SURGERY RIGHT SIDE OF THE BONY PELVIS INCLUDING A RIGHT SAFIA AND EXTENSIVE PLATE AND SCREW FIXATION DEVICES INVOLVING THE RIGHT ILIAC BONE, RIGHT SUPERIOR PUBIC RAMUS AND RIGHT ISCHIUM, HYSTERECTOMY, AND PROBABLY A SUTURE LINE IN THE REGION OF THE RECTOSIGMOID JUNCTION. THERE IS LIKELY OLD FRACTURE DEFORMITY OF THE INFERIOR PUBIC RAMI BILATERALLY. 2. INFRARENAL ABDOMINAL AORTIC ANEURYSM MEASURING APPROXIMATELY 3.5 X 3.3 CM TODAY, SLIGHTLY INCREASED FROM THE 3.1 X 3.1 CM MEASUREMENTS ON 09/16/15. 3. LARGE HIATAL HERNIA. 4. DIFFUSE FATTY INFILTRATION OF THE LIVER. JOB NUMBER: [id number] [facility]
[2017-04-02] MEDS: HYDROCODONE/APAP 5/325MG TABLET PO PRN ×2 (08:29→14:58)
[2017-04-02] MEDS: SUCRALFATE 1 G/10 ML UD PO SCH ×2 (09:35→12:59)
[2017-04-02] MEDS: THIAMINE MONONITRATE 100 MG TABLET PO SCH (09:35)
[2017-04-02] MEDS: GABAPENTIN 300 MG CAPSULE PO SCH (09:35)
[2017-04-02] MEDS: BENAZEPRIL 20 MG TABLET PO SCH (09:35)
[2017-04-02] MEDS: PANTOPRAZOLE SODIUM IV 40 MG VIAL IV SCH (09:35)
[2017-04-02] MEDS: METOPROLOL SUCC 25 MG TAB.ER PO SCH (09:35)
--- NOTE | 2017-04-02 12:30 | Medical Records Consult ---
DATE OF CONSULTATION: 04/02/2017 REFERRING PROVIDER: Sandrine Tracy MD/TANISHA Bridges REASON FOR CONSULTATION: Consultation request for upper gastrointestinal tract bleeding. HISTORY: Patient was a pleasant, 66-year-old, female seen in consultation at this time for evaluation of dark stools, nausea, vomiting, and an episode of possible coffee-ground emesis. She has a history of chronic alcoholism, COPD, lupus, hypertension, osteoarthritis, hyperlipidemia, and gastroesophageal reflux disease. A little over a year ago, she presented with hypovolemic shock and was transferred to [facility] in [place], at which time upper endoscopy demonstrated 2 gastric ulcers and a hiatal hernia. She also had a colonoscopy at that time demonstrated a rectosigmoid mass, which was ultimately resected by Dr. Quesada. She has had multiple hospitalizations for alcohol intoxication and renal failure. She also had hospitalizations for chronic obstructive pulmonary disease exacerbations. Much of the history was obtained from medical record, as the patient is a very poor historian and cannot remember much of her history. She admits to drinking three 28-ounce beers a day, but states she has slowed down of late because she has felt sick to her stomach. PAST MEDICAL HISTORY: As outlined above. She continues to smoke on a daily basis. She continues to drink alcohol regularly. She denies illicit drug usage. PAST SURGICAL HISTORY: Include the above-mentioned sigmoid resection for a mass. The pathology from this mass is not available at the time of this dictation. MEDICATIONS: Her home medications include gabapentin, omeprazole 20 mg twice daily, Requip 1 mg at nighttime, Zocor 40 mg at nighttime, melatonin 10 mg at nighttime, albuterol, hydrocodone ([place]), loperamide p.r.n., milk of magnesia 3 times daily, benazepril, and metoprolol. ALLERGIES: Aspirin and NSAIDs, although she did admit to taking Motrin, at least 2 tablets daily. REVIEW OF SYSTEMS: Noted on medical record and review. PHYSICAL EXAMINATION: The patient seems alert and fairly well-oriented, although she is a poor historian. The neck is supple. Heart regular. Lungs clear. Abdomen is soft. There is no tenderness. The extremities are free from edema. The rest of the examination is grossly unremarkable. LABORATORY: Upon admission, revealed a hemoglobin of 8.5. This dropped to 7.2, and today was 7.5. Platelet count is 329,000. PT/INR normal. Aminotransferase levels are elevated at 68 and 124 for ALT and AST. Alkaline phosphatase is 160. IMAGING: CT of the abdomen obtained, revealed a stable aortic aneurysm, hiatal hernia, and fatty liver disease. There were no new processes noted. IMPRESSIONS: 1. Your patient suffers with anemia, most likely related to gastrointestinal tract blood loss with history of melena and possible coffee-ground emesis. She has a prior history of peptic ulcer disease in her stomach. She takes nonsteroidal antiinflammatory drugs and continues to drink alcohol at three 28-ounce beers daily. 2. She had a rectosigmoid mass, which was resected surgically approximately 1 year ago, but had no apparent recheck following this procedure, but had no apparent recheck colonoscopy at this point. RECOMMENDATIONS: At this point, I would proceed with upper endoscopy and further recommendations will be forthcoming. She should continue on acid blockade therapy pending findings. Thank you for allowing me to participate in her care. CC: MD RAVEN Carlson
--- NOTE | 2017-04-02 13:29 | Rehab Evaluation ---
Patient Information - Patient Information Diagnosis: GI Bleed Ordered Treatment: PT Evaluate and Treat Status: Initial Evaluation History: Detail (The patient presented in ED on 03/31/17 with complaints of blood in the stool, abdominal pain and vomiting. 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 PMH - Respiratory Hx Respiratory Disorders Yes Hx Asthma Yes Hx Chronic Obstructive Yes Pulmonary Disease (COPD) Hx Sleep Apnea Yes Hx of CPAP Yes PMH - Cardiovascular Hx Cardiovascular Disorders Yes Hx Hypertension Yes Comment: high cholesterol PMH - Neuro Hx Neurological Disorders Yes Hx Dizziness Yes Hx Neuropathy Yes: LLE PMH - GI Hx Gastrointestinal Disorders Yes Hx Gastrointestinal Bleed Yes Hx Gastroesophageal Reflux Yes Hx Nausea/Vomiting Yes Hx Ulcer Yes PMH - Hx Genitourinary Disorders No Comment: incontinence - stress and urge PMH - Endocrine Hx Endocrine Disorders No Hx Diabetes No Hx Thyroid Disease No PMH - Musculoskeletal Hx Musculoskeletal Disorders Yes Hx Arthritis Yes Hx Back Injury Yes Comment: restless legs/Lupus PMH - Psych Hx Psychiatric Problems Yes Hx Depression Yes PMH - Hematology/Oncology Hx Hematology/Oncology Yes Disorders Hx Cancer Yes: "vaginal" carcinoma, colon Hx Chemotherapy No Hx Radiation Therapy No Premorbid Status: Detail (The patient was ambulating limited distances with her spouse and small base quad cane.) Social History: Detail (The patient lives with spouse in an apartment wiht 4-5 steps and one handrail at the enterance. Her bathroom has a tub/shower combination with a tub chair and a home health aide assist with her showering. She is independent with dressing with occasional assistance of spouse. The spouse completes cooking and laundry with the home health aide completing all other household tasks. The patient has a hospital bed, commode, 2 wheeled walker, quad cane and wheelchair.) Precautions: [place], Fall - Time With Patient Total Time Spent With Patient (Min): 25 Treatment Procedures: Detail (PT initial evaluation) Subjective Information - Subjective Information Per Patient (The patient has complaints of LE weakness and L hip and lower back pain. The patient did not rate her pain using 0-10 pain scale.) Objective Data - Mental Status Patient Orientation: Oriented x3 - Visual Perception Appears within normal limits for therapeutic activities - ROM Not within normal limits (The patient had limited bilateral shoulder flexion aproximately 95 degrees. The patient's LE AROM is WFL.) - Strength/Tone Within normal limits (The patient's UE strength was generally 4+ to 5/5.), Not within normal limits (The patient's LE strength was L hip musculature 3+/5, R 4/ 5, L quad and hamstring strength 4-/5, R 4/5, R dorsiflexors and plantar flexors 3 to 3+/5, L 4/5.) - Bed Mobility Independent (The patient was independent with supine to and from sit transfer.) - Transfers Needs Assist (The patient required supervision with sit to stand transfer due to lightheadness.) - Balance Balance Sitting: Good Balance Standing: Fair (The patient stood without support with wide base of support and increased postural sway. The patient had decreased balance reaction posteriorly.) - Gait Detail (The patient ambulated with small base quad cane with CG of 1 for safety a distance of 35 feet of 1. The patient ambulated with a wide base of support and decreased heel to toe weight shift bilaterally. The patient complained of lightheadness throughout gait. The patient was short of breath after ambulating. ) Therapy Assessment - Therapy Assessment Detail (The patient exhibited decreased LE strength, primarily L LE , decreased balance and decreased ability to complete prolonged physical activity. Ongoing PT is recommended to increase patient's strength, improve balance and independence with ambulation. Home Health PT is recommended upon discharge form [facility].) Problem List - Problem List Physical Therapy Problem List: Detail (1) Decreased Balance 2) Decreased L LE strength 3)CG with ambulation 4) Decreased ability to complete sustained physical activity.) Goals - Goals Physical Therapy Goals: 1) The patient will ambulate 100 feet with supervision for safety with assistive device. 2) Increase LE strength 1/3 muscle grade. 3 ) Improve patient's posterior balance reaction. 4) The patient will toerate 30 minutes of physical activity with one rest period. Prognosis - Prognosis Moderate Plan - Plan Physical Therapy Plan: PT once daily until discharge from [facility] for gait training , LE strengthening and balance exercises. Ongoing home PT is recommended.
[2017-04-02] MEDS ORDERED: LIDOCAINE 2% MDV (20MG/ML) 20ML VIAL IV ONE (14:00)
--- NOTE | 2017-04-02 16:19 | Discharge Summary ---
Providers Discharge Summary Date: 04/02/17 Date of admission: 03/31/17 19:32 Expected Date of Discharge: 04/02/17 Attending physician: PATRICE CAMPOS Physical Exam - Vital Signs Vital Signs: Vital Signs - Last 24 Hrs Temp Pulse Resp BP Pulse Ox 04/02/17 09:40 98.0 F 99 H 18 116/70 99 04/02/17 09:25 98.0 F 95 H 18 127/64 99 04/02/17 09:10 98.0 F 92 H 18 152/87 96 04/02/17 08:00 97.8 F 85 18 151/90 96 04/02/17 07:48 20 04/02/17 06:00 97.6 F 89 22 147/79 96 04/01/17 21:00 18 04/01/17 20:00 98.7 F 89 24 117/69 98 - General General Appearance: Alert, Oriented x3, Cooperative, No acute distress Limitations: No limitations - Head Head exam: Normal inspection - Eye Eye exam: Normal appearance. negative: Conjunctival injection, Periorbital swelling - ENT ENT exam: Normal exam Ear exam: Normal external inspection Nasal Exam: Normal inspection Mouth exam: Normal external inspection - Neck Neck exam: Normal inspection - Respiratory Respiratory exam: Normal lung sounds bilaterally. negative: Respiratory distress - Cardiovascular Cardiovascular Exam: Regular rate, Normal rhythm, Normal heart sounds Peripheral Pulses: 2+: Radial (R), Radial (L) - GI/Abdominal GI/Abdominal exam: Soft. negative: Distended, Guarding, Hernia - Rectal Rectal exam: negative: Fecal impaction, Hemorrhoids, Mass, Tenderness - exam: Deferred - Extremities Extremities exam: Normal inspection, Full ROM, Normal capillary refill. negative: Tenderness - Back Back exam: Reports: Normal inspection, Full ROM. Denies: Muscle spasm, Rash noted, Tenderness - Neurological Neurological exam: Alert, Normal gait, Oriented X3 - Psychiatric Psychiatric exam: Normal affect, Normal mood - Skin Skin exam: Dry, Intact, Normal color, Warm Hospitalization - Hospitalization Admission Diagnosis: GI bleed - Problem List/Discharge Diagnosis (1) GI bleed Status: Acute Discharge Diagnosis: GI bleed type/associated pathology: melena Qualified Code(s): K92.1 - Melena Base Code: K92.2 - GASTROINTESTINAL HEMORRHAGE, UNSPECIFIED Comment: 04/02/17- resolved. hgb up to 7.5. Patient denies any further episodes of dark or bloody stools or bloody emesis. Had EGD today that was normal. -will plan to discharge home today. contacted [facility] marketing development [facility], Marleni and she states she will set up follow up appointment. Patient states she has new doctor coming out to the house tomorrow. -continue prilosec home regimen -spent 10 minutes counseling patient on importance of abstaining from alcohol drinking. She voiced her understanding and states she will not be drinking any more. RADHA met with patient and made her aware of resources for alcohol abuse. She declined any further services at this time -follow up next week for outpatient colonoscopy with Dr. Bazzi (2) Lung mass Status: Acute Base Code: R91.8 - OTHER NONSPECIFIC ABNORMAL FINDING OF LUNG FIELD Comment: 04/02/17- RUL soft tissue mass 3.8 x 4.8 x 5.[address] of the chest back in September of 2016. CT was ordered by her PCP but appears has not been followed up. concern for primary lung neoplasm vs metastasis with h/o rectosigmoid mass removed in june 2016. -contacted Marleni of [facility]. Made her aware that patient has not followed up regarding this mass. Marleni states she had been referred and had gone to [facility] back in January. when I discussed this with patient she states she remembers they did go see a doctor but did not care for him because he was upset she had missed two previous appointments with him. patient decided she didn't want to go back to him and never had PET scan follow up like she was supposed to. -Asked that Marleni place a referral to [facility]. She confirmed that she would fax them a referral. I will call them in the next 48Hours to make sure they received referral and can get patient scheduled. -I counseled patient for 10 minutes on the importance of abstaining from smoking. I will send nicotine patches to her pharmacy. I was very direct with patient and her about the seriousness of her condition. I explained they needed to make sure they had a phone numbner they coudl be reached at and that if they did not receive a phone call to schedule an appointment within one week they needed to contact Marleni or myself. I also made it very clear that they could not miss any appointments with [facility] and that if transportation was an issue they needed to contact their insurance, as [employer] does provide rides. They both voiced their understanding. (3) Physical deconditioning Status: Acute Base Code: R53.81 - OTHER MALAISE Comment: 04/02/17- Patient deconditioned due to sedentary lifestyle. PT evaluated and feels she would benefit from home PT. SW has set up home health services [facility] to continue therapy. (4) DVT prophylaxis Status: Acute Base Code: RPL3210 - Comment: 04/02/17- Patient is high risk for DVt with age, restricted mobility, and likely active malignancy - SCD's while in bed as lovenox contraindicated with active GI bleed -encouraged ambulation [facility] pT.oT (5) Electrolyte imbalance Status: Acute Base Code: E87.8 - [facility] DISORDERS OF ELECTROLYTE AND FLUID BALANCE, NEC Comment: 04/02/17- resolved. - Hospitalization Course Disposition: Home Health Service Abnormal Labs: Abnormal Lab Results 04/01/17 04/01/17 04/02/17 Range/Units 05:30 15:20 06:05 RBC 2.79 L 2.73 L 2.80 L (3.80-5.40) M/uL Hgb 7.3 L 7.2 L 7.5 L (11.6-16.0) gm/dl Hct 24.5 L 24.2 L 24.8 L (35.0-47.0) % MCH 26.1 L 26.3 L 26.7 L (27-33) pg MCHC 29.8 L 29.8 L 30.2 L (32-36) g/dl RDW 16.4 H 16.1 H 16.3 H (11.5-14.5) % Eosinophils % 9.9 H (0-6) % Eosinophil Count 13.0 H 9.0 H (0-6) % AST (14-36) U/L Albumin (3.5-5.0) gm/dL 04/02/17 Range/Units 06:05 RBC (3.80-5.40) M/uL Hgb (11.6-16.0) gm/dl Hct (35.0-47.0) % MCH (27-33) pg MCHC (32-36) g/dl RDW (11.5-14.5) % Eosinophils % (0-6) % Eosinophil Count (0-6) % AST 61 H (14-36) U/L Albumin 3.4 L (3.5-5.0) gm/dL Condition at Discharge: (2) Stable Discharge Medications - Discharge Medications Prescriptions: Hydrocodone/Acetaminophen [[place]arcoxie 5mg/325mg] 1 tab PO Q6H PRN #20 PRN Reason: Pain - Severe (8-10) Nicotine [Nicotine 21Mg] 1 patch TD Q24H #30 patch Home Medications: Ambulatory Orders Gabapentin 300 mg PO BID 09/16/15 [Last Taken 12/31/16] Omeprazole [Prilosec] 20 mg PO BID 09/16/15 [Last Taken 12/31/16] Ropinirole HCl [Requip] 1 mg PO QHS 09/16/15 [Last Taken 12/30/16] Simvastatin [Zocor] 40 mg PO QHS 09/16/15 [Last Taken 12/30/16] Melatonin 10 mg PO QHS 10/10/15 [Last Taken 12/30/16] Albuterol Sulfate 0.083% [Neb] 3 ml NEB .EVERY 4-6 HOURS PRN 12/02/15 [Last Taken Unknown] Loperamide HCl [Immodium] 2 mg PO TID PRN 12/02/15 [Last Taken 07/03/16] Magnesium Oxide [Fleming] 500 mg PO TID 12/02/15 [Last Taken 12/02/15] Amlodipine Besylate [Norvasc] 10 mg PO DAILY #30 tablet 12/07/15 [Last Taken ] Benazepril HCl [Lotensin] 20 mg PO DAILY 07/03/16 [Last Taken 12/31/16] Metoprolol Succinate 25 mg PO DAILY 07/03/16 [Last Taken 12/31/16] Thiamine Mononitrate [Vitamin B-1] 100 mg PO BID #2 tablet 07/05/16 [Last Taken 12/31/16] Hydrocodone/Acetaminophen [S[place]oxie 5mg/325mg] 1 tab PO Q6H PRN #20 04/02/17 [ Last Taken Unknown] Nicotine [Nicotine 21Mg] 1 patch TD Q24H #30 patch 04/02/17 [Last Taken Unknown] Discharge Plan - Discharge Instructions Diet at Discharge: Advance to Usual Diet Instructions: Gastrointestinal Bleeding (DC), Colonoscopy (DC) Additional Instructions: Follow up with Dr. Bazzi on SundayApril 30 here at [facility] at 12:00 for colonoscopy. Please follow instructions given for the day before and morning of the scope Please follow up with [facility] tomorrow as planned. Please be sure to check that they have sent a referral to [facility] fax # [phone]. They should then be calling you within the week to schedule an appointment. Please be sure to call them if you have not heard anything as this is in regards to your lung mass found on CT scans. [facility] will be out tomorrow to begin home physical and occupational therapy to work on strength. Continue a soft, bland diet. Do not resume drinking alcohol or smoking cigarettes. A prescription for nicotine patches has been sent to [facility] in [place] May use hydrocodone 5/325mg by mouth every 6 hours as needed for severe pain. Please call us with any questions or concerns Return to ED for any new or worsening symptoms including recurrent rectal bleeding, dark stools, or recurrence of vomiting. .
[2017-04-02] MEDS ORDERED: PROPOFOL 10 MG/ML VIAL IV ONE (17:04)
[2017-04-02] MEDS ORDERED: FENTANYL PF 100MCG/2ML VIAL IV ONE (17:04)
--- NOTE | 2017-04-04 11:10 | Operative Note ---
DATE OF SURGERY: 04/02/2017 OPERATION: ESOPHAGOGASTRODUODENOSCOPY. INDICATION: Possible upper gastrointestinal tract bleeding with history of melena, coffee-ground emesis, and anemia. Patient with prior history of peptic ulcer disease diagnosed 1 year ago, chronic alcoholism, anti-inflammatory drug usage. ANESTHESIA: Intravenous sedation was administered by the department of anesthesiology and included Diprivan titrated to effect. PROCEDURE: Following informed consent from this alert individual, including a discussion of the risks and benefits of the procedure and an opportunity for the patient to ask questions, the patient was in the left lateral decubitus position. The Olympus [id number] video endoscope was inserted into the esophagus without resistance. The proximal esophagus had a normal appearance with normal folds and distensibility. The mid and distal esophagus likewise was free from gross mucosal abnormalities. There was a 3-4 cm hiatal hernia noted which was free from mucosal changes. At the level of the diaphoresis, there was some mild erythema noted but no eleno ulcerations, erosions, or bleeding, the remainder of the stomach was endoscopically unremarkable. Pylorus was patent. The duodenal bulb, sweep, and descending duodenum were examined in a serial fashion and found to be normal. The endoscope was then drawn back into the body of the stomach. Retroflexion accomplished following air insufflation again revealed a hiatal hernia with some erythema at the level of the diaphragm but without ulcerations, erosions, or bleeding. The endoscope was straightened and withdrawn. Again the esophagus upon withdraw was normal. The instrument was removed. The patient tolerated the procedure well and was returned to the recovery area in stable condition. IMPRESSION: 1. Hiatal hernia. 2. Mild gastritis at the level of the diaphragm but no ulcerations, erosions, or bleeding. 3. There was no blood noted throughout the examination. RECOMMENDATION: The patient will need to undergo colonoscopy, which can be completed as an outpatient. At this point, her diet can be advanced. She should be maintained on acid blockade. She should avoid anti-inflammatory drugs and alcohol. Followup will be with Dr. Tracy. As always, thank you for allowing me to participate in the care of your patient. CC: Dr. Demarcus CARBAJAL
== END 2017-04-02 17:05 | disposition home health service (06) | DRG 379 ==
LOC: ER 15:04 → MEDSURG 19:32
PROVIDERS: ADMIT Family Medicine; ATTEND Family Medicine
PROC: 0DJ08ZZ Inspection of Upper Intestinal Tract, Via Natural or Artificial Opening Endoscopic (ICD-10-PCS; principal; 2017-03-31)
DX: K92.2 Gastrointestinal hemorrhage, unspecified (principal); K29.00 Acute gastritis without bleeding; D50.0 Iron deficiency anemia secondary to blood loss (chronic); F17.200 Nicotine dependence, unspecified, uncomplicated; K44.9 Diaphragmatic hernia without obstruction or gangrene; F10.20 Alcohol dependence, uncomplicated; K70.0 Alcoholic fatty liver; G25.81 Restless legs syndrome; J44.9 Chronic obstructive pulmonary disease, unspecified; I10 Essential (primary) hypertension; G47.33 Obstructive sleep apnea (adult) (pediatric); Z85.038 Personal history of other malignant neoplasm of large intestine; E87.8 Other disorders of electrolyte and fluid balance, not elsewhere classified; R91.8 Other nonspecific abnormal finding of lung field; R53.81 Other malaise
CPT/HCPCS: 99285 ×2; 96374; 96375; 85025; 85730; 85610; 80053; 86900; 86901; 86850; 74177; Q9967; J2405; J2270; 85027; 99223; 99239; C9113

== ENCOUNTER → 2017-04-30 | Day surgery (SDC) | payer MEDICARE, MEDICAID | END | disposition home or self-care (01) | LOC: HOP 12:13 | PROVIDERS: ATTEND Internal Medicine Gastroenterology | DX: Z53.9 Procedure and treatment not carried out, unspecified reason (principal) ==

== ENCOUNTER 2017-08-25 19:53 | Inpatient (IN) | payer MEDICARE, MEDICAID ==
[2017-08-25] MEDS ORDERED: IPRATROPIUM/ALBUTEROL (0.5MG/3MG) NEB INH ONE (20:08)
[2017-08-25] MEDS ORDERED: HYDROCODONE/APAP 5/325MG TABLET PO ONE (20:08)
--- NOTE | 2017-08-25 20:12 | Emergency Department Record ---
History of Present Illness - General Chief Complaint: Shortness of breath Stated Complaint: LISBET Time Seen by Provider: 08/25/17 20:03 Source: Patient Mode of Arrival: EMS Limitations: No limitations - History of Present Illness Initial Comments: The patient is here due to coughing and being mildly SOB for about a week. She also has been having increased rib and hip pain because she ran out of her [place] last week also. She has had some colored sputum but denies any fever, chills, AP, or black stools. She was vomiting a few days ago and possibly did vomit black at one time but not recently. She may have had some black stools this AM also but she is not sure. MD Complaint: Cough, Shortness of breath Onset/Timin -: Week(s) - Related Data Home Oxygen Therapy: Yes Home Oxygen Amount: 2 Liters Home Medications Medication Instructions Recorded Confirmed Last Taken Albuterol Sulfate [Ventolin Hfa] 1 - 2 puff IH .EVERY 4-6 HOURS PRN 08/25/17 Unknown Benazepril HCl [Lotensin] 20 mg PO ASDIR 08/25/17 08/25/17 Unknown Duloxetine HCl [Cymbalta] 60 mg PO DAILY 08/25/17 08/25/17 Unknown Fluticasone/Salmeterol [Advair 1 each IH DAILY 08/25/17 08/25/17 Unknown 100-50 Diskus] Gabapentin [Neurontin] 100 mg PO TID 08/25/17 08/25/17 Unknown Loratadine 10 mg PO DAILY 08/25/17 08/25/17 Unknown Metoprolol Tartrate [Lopressor] 25 mg PO Q12H 08/25/17 08/25/17 Unknown Prochlorperazine Maleate 10 mg PO Q8H 08/25/17 08/25/17 Unknown [Compazine] Zolpidem Tartrate [Ambien] 5 mg PO QHS 08/25/17 08/25/17 Unknown Previous Rx's Medication Instructions Recorded Amlodipine Besylate [Norvasc] 10 mg PO DAILY #30 tablet 12/07/15 Allergies Allergy/AdvReac Type Severity Reaction Status Date / Time aspirin AdvReac Unknown VOMITING Verified 07/03/16 23:22 NSAIDS (Non-Steroidal AdvReac Unknown VOMITING Verified 10/31/16 23:22 Anti-Inflamma Travel Screening - Travel/Exposure Within Last 30 Days Have you traveled within the last 30 days?: No - Travel/Exposure Within Last Year Have you traveled outside the [place] in the last year?: No - Additonal Travel Details Have you been exposed to anyone with a communicable illness?: No - Travel Symptoms Symptom Screening: None Review of Systems Constitutional: Denies: Chills, Fever Eyes: Denies: Eye discharge ENT: Reports: Congestion Respiratory: Reports: Cough. Denies: Dyspnea, Hemoptysis Past Medical History - SOCIAL HISTORY Smoking Status: Current every day smoker Alcohol Use: None Drug Use: None - RESPIRATORY Hx Respiratory Disorders: Yes Hx Asthma: Yes Hx COPD: Yes Hx Sleep Apnea: Yes Hx of CPAP: Yes Comment:: wears home o2 at 2L - CARDIOVASCULAR Hx Cardio Disorders: Yes Hx Hypertension: Yes Comment:: high cholesterol - NEURO Hx Neuro Disorders: Yes Hx Dizziness: Yes Hx Neuropathy: Yes (LLE) - GI Hx GI Disorders: Yes Hx GI Bleed: Yes Hx Reflux: Yes Hx Nausea/Vomiting: Yes Hx Ulcer: Yes Hx of Polyps: Yes - Hx Genitourinary Disorders: Yes Hx Renal Disease: Yes Comment:: incontinence - stress and urge - ENDOCRINE Hx Endocrine Disorders: No Hx Diabetes: No Hx Thyroid Disease: No - MUSCULOSKELETAL Hx Musculoskeletal Disorders: Yes Hx Arthritis: Yes Hx Back Injury: Yes Comment:: restless legs/Lupus - PSYCH Hx Psych Problems: Yes Hx Depression: Yes - HEMATOLOGY/ONCOLOGY Hx Hematology/Oncology Disorders: Yes Hx Cancer: Yes ("vaginal" carcinoma, colon) Hx Chemotherapy: No Hx Radiation Therapy: No Hx Blood Transfusions: Yes (as a child) Family Medical History Any Significant Family History?: Yes Hx Anxiety: Brother/Sister Hx Cancer: Father, Mother, Brother/Sister Hx Dementia: Brother/Sister Hx Depression: Brother/Sister Hx Diabetes: Brother/Sister Hx Heart Disease: Mother Hx HTN: Mother Hx Resp Disorders: Mother, Brother/Sister Hx Stroke: Brother/Sister Physical Exam - General General Appearance: Alert, Oriented x3, Cooperative, No acute distress - Head Head exam: Atraumatic, Normocephalic, Normal inspection - Eye Eye exam: Normal appearance, PERRL - ENT Throat exam: Normal inspection. negative: Tonsillar erythema, Tonsillar exudate - Neck Neck exam: Normal inspection, Full ROM. negative: Tenderness - Respiratory Respiratory exam: Normal lung sounds bilaterally. negative: Respiratory distress - Cardiovascular Cardiovascular Exam: Regular rate, Normal rhythm, Normal heart sounds - GI/Abdominal GI/Abdominal exam: Soft, Normal bowel sounds. negative: Distended, Guarding, Tenderness - Rectal Rectal exam: Heme (-) stool - Extremities Extremities exam: Normal inspection, Full ROM, Normal capillary refill. negative: Tenderness - Back Back exam: Reports: Normal inspection, Full ROM. Denies: Muscle spasm, Rash noted, Tenderness - Neurological Neurological exam: Alert. negative: Motor sensory deficit Course Vital Signs 08/25/17 08/25/17 19:57 19:59 Temperature 97.4 F L 97.4 F L Pulse Rate 89 Pulse Rate [ 92 H Pulse Ox Probe] Respiratory 24 22 Rate Blood Pressure 121/104 Blood Pressure 121/104 [Left Arm] Pulse Ox 100 100 - Reevaluation(s) Reevaluation #1: The patient is doing well. I did discuss the CXR and Anemia with the patient and the need for admission and she did agree. I then did discuss the case with Heike BRUNER) and she did accept the admission for Dr. Matthew. 08/25/17 21:32 Medical Decision Making - Data Complexity MDM Data: Labs Ordered and/or Reviewed, X-Ray Ordered and/or Reviewed - Lab Data Result diagrams: 08/25/17 20:26 08/25/17 20:26 - Radiology Data Radiology results: Report reviewed (CXR: Large R lung mass with possible infiltrate.) Disposition Disposition: Admit Clinical Impression: Lung mass GI bleed Qualifiers: GI bleed type/associated pathology: unspecified gastrointestinal hemorrhage type Qualified Code(s): K92.2 - Gastrointestinal hemorrhage, unspecified Disposition: Still a Patient at [facility] Decision to Admit: Admit from ER Decision to Admit Date: 08/25/17 Decision to Admit Time: 21:33 Accepting Physician: Vipul Time Discussed w/Accepting Physician: 21:33 Condition: (2) Stable Time of Disposition: 21:34 Quality - Quality Measures Quality Measures: N/A - Blood Pressure Screening View Details: Yes Does Patient Have Any of the Following: Active Dx of HTN Blood Pressure Classification: Hypertensive Reading Systolic Measurement: 121 Diastolic Measurement: 104 Screening for High Blood Pressure: Patient Exclusion, Hx of HTN [[id number]]
[2017-08-25 20:44] LABS: HEMATOCRIT 18.2 % (35.0-47.0); MEAN CELL VOLUME 76.8 fl (81-97); MEAN CORPUSCULAR HGB CONC 26.4 g/dl (32-36); MEAN PLATELET VOLUME 9.7 fl (7.4-10.4); PLATELET COUNT 297 K/uL (130-400); RED BLOOD COUNT 2.37 M/uL (3.80-5.40); RED CELL DISTRIBUTION WIDTH 20.8 % (11.5-14.5); WHITE BLOOD COUNT W/O DIFF 8.3 K/uL (4.2-12.2)
[2017-08-25 20:46] LABS: MEAN CORPUSCULAR HEMOGLOBIN 20.2 pg (27-33)
[2017-08-25 20:55] LABS: INR 1.05; PARTIAL THROMBOPLASTIN TIME 21.6 SECONDS (24.5-39.1); PROTHROMBIN TIME (PATIENT) 11.4 SECONDS (9.5-12.1)
[2017-08-25 20:57] LABS: HYPOCHROMIA 2+; MICROCYTOSIS 1+
[2017-08-25 20:58] LABS: BLOOD UREA NITROGEN 9 mg/dL (8-23); CREATININE 0.6 mg/dL (0.5-0.9); EST GLOMERULAR FILTRATION RATE > 60 mL/min
[2017-08-25 21:00] LABS: GLUCOSE,RANDOM 108 mg/dL (74-109)
--- NOTE | 2017-08-25 21:21 | RADIOLOGY REPORT ---
EXAM: CHEST 2 VIEWS HISTORY: PRODUCTIVE COUGH, SHORT OF BREATH. TECHNIQUE: Two views of the chest are provided along with a comparison study dated 12/31/2016. FINDINGS: The cardiac silhouette is magnified. There is a prominent right hilum. The right paramediastinal soft tissue mass measures approximately 5.2 cm on the current examination, whereas on the prior examination this lesion measured approximately 4.2 cm. This also has increased in the craniocaudad dimension from the right hilum to the right apex. There is blunting of the left costophrenic angle, which may reflect pleural thickening. There are findings suspicious for a right-sided subpulmonic effusion , which has increased with respect to the prior examination. Left anterior chest wall port catheter is identified. Lead tip is identified in the region of the superior vena cava. No pneumothorax is noted. IMPRESSION: 1. INCREASE IN SIZE OF RIGHT PARAMEDIASTINAL MASS. 2. FINDINGS SUSPICIOUS FOR RIGHT SUBPULMONIC EFFUSION. FOLLOW-UP PA AND LATERAL VIEW OF THE CHEST CAN BE OBTAINED UNTIL RESOLUTION OF FINDINGS. JOB NUMBER: [id number] MTDD
[2017-08-25] MEDS ORDERED: LEVOFLOXACIN/D5W 750 MG/150 ML BAG IVPB ONE (21:30)
[2017-08-25 21:40] LABS: ABO GROUP A; ANTIBODY SCREEN NEGATIVE (NEGATIVE); RH TYPE POSITIVE
[2017-08-25 21:41] LABS: IMMED. SPIN CROSSMATCH COMPATIBLE
[2017-08-25 21:53] LABS: HEMOGLOBIN 4.8 gm/dl (11.6-16.0)
[2017-08-25 22:20] LABS: IMMED. SPIN CROSSMATCH COMPATIBLE
[2017-08-25] MEDS ORDERED: ALBUTEROL SULFATE (0.083%) 2.5 MG/3 ML NEB INH PRN (23:03)
[2017-08-25] MEDS ORDERED: ZOLPIDEM TARTRATE 5 MG TABLET PO SCH (23:03)
[2017-08-25] MEDS ORDERED: IPRATROPIUM/ALBUTEROL (0.5MG/3MG) NEB INH PRN (23:03)
[2017-08-25] MEDS ORDERED: ACETAMINOPHEN 500 MG TABLET PO PRN (23:03)
[2017-08-25] MEDS ORDERED: ROPINIROLE HCL 1 MG TABLET PO SCH (23:03)
[2017-08-25] MEDS ORDERED: BENZONATATE 100 MG CAPSULE PO PRN (23:09)
[2017-08-25] MEDS ORDERED: DULOXETINE HCL 30 MG CAPSULE.DR PO SCH (23:30)
[2017-08-26] MEDS: PROCHLORPERAZINE MALEATE 10 MG TABLET PO SCH ×3 (00:07→15:24)
[2017-08-26] MEDS: METOPROLOL TART 25 MG TABLET PO SCH ×2 (00:07→12:15)
[2017-08-26] MEDS: GABAPENTIN 100 MG CAPSULE PO SCH ×3 (00:07→15:24)
[2017-08-26] MEDS: HYDROCODONE/APAP 5/325MG TABLET PO PRN ×4 (00:07→12:43)
[2017-08-26 06:57] LABS: HEMATOCRIT 24.8 % (35.0-47.0); HEMOGLOBIN 7.2 gm/dl (11.6-16.0); MEAN CORPUSCULAR HEMOGLOBIN 22.9 pg (27-33); MEAN PLATELET VOLUME 9.6 fl (7.4-10.4); PLATELET COUNT 279 K/uL (130-400); RED BLOOD COUNT 3.14 M/uL (3.80-5.40); RED CELL DISTRIBUTION WIDTH 19.3 % (11.5-14.5); WHITE BLOOD COUNT W/O DIFF 9.3 K/uL (4.2-12.2)
[2017-08-26] MEDS ORDERED: PANTOPRAZOLE SODIUM IV 40 MG VIAL IVP ONE (07:00)
[2017-08-26 07:24] LABS: BLOOD UREA NITROGEN 8 mg/dL (8-23); CREATININE 0.6 mg/dL (0.5-0.9); EST GLOMERULAR FILTRATION RATE > 60 mL/min; GLUCOSE,RANDOM 103 mg/dL (74-109)
[2017-08-26 07:41] LABS: HYPOCHROMIA 2+
[2017-08-26 07:42] LABS: MICROCYTOSIS 1+
--- NOTE | 2017-08-26 07:47 | History & Physical ---
History of Present Illness - Date of Service Date of Service for History & Physical: 08/26/17 - History of Present Illness Admitting Diagnosis: 1 GI Bleed with Anemia. 2. R lung mass with probable pneumonia History of Present Illness: 66yo female with CC of cough. She has history of lung cancer, copd, alcoholism, GI bleed, lupus, htn, SHANNON, HLD, GERD, hiatal hernia, arthritis, depression, RLS , chronic low back pain, and is current pack a day smoker. Patient presented to the ED due to coughing and being mildly SOB for about a week. She also has been having increased rib and hip pain because she ran out of her [place] last week. She has had some colored sputum but denies any fever, chills, AP, or black stools. She was vomiting a few days ago and reports some dark, coffee ground vomitus. While in the ED, patient was found to have hgb of 4.8. She was neither hypotensive or tachycardic with rat of 89 and pressure of 124/104. Her CXR showed increase in size of her right paramediastinal mass and probable right subpulmonic effusion. No other acute airspace disease. Her oxygen saturation was 100%. Patient was given 2 units of pRBC's, started on levaquin 750mg for possible pneumonia and admitted. 08/26/17- Patient states she is feeling much better today. she says she is no longer coughing like she had been and denies feeling short of breath. She says her doctor wants her using her home oxygen at all times which she has been doing. since her last visit in March, patient has established with [facility] for her lung cancer. She has an appointment with them scheduled on 08/29/17. She will be starting chemotherapy and radiation. She denies any further vomiting since a few days ago and tolerated her breakfast well today. She has not had a BM today, but her states she may have had a darker than normal stool yesterday. She denies any abdominal pain, epigastric burning. Says she quit drinking alcohol 2 months ago. pcp: [facility] Travel Screening - Travel/Exposure Within Last 30 Days Have you traveled within the last 30 days?: No - Travel/Exposure Within Last Year Have you traveled outside the [place] in the last year?: No - Additonal Travel Details Have you been exposed to anyone with a communicable illness?: No - Travel Symptoms Symptom Screening: None Review of Systems Constitutional: Denies: Chills, Fever Eyes: Denies: Eye discharge ENT: Reports: Congestion Respiratory: Reports: Cough. Denies: Dyspnea, Hemoptysis Cardiovascular: Denies: Chest pain Gastrointestinal: Denies: Abdominal pain, Constipation, Nausea, Vomiting Past Medical History - SOCIAL HISTORY Smoking Status: Current every day smoker Alcohol Use: None Drug Use: None - RESPIRATORY Hx Respiratory Disorders: Yes Hx Asthma: Yes Hx COPD: Yes Hx Sleep Apnea: Yes Hx of CPAP: Yes Comment:: wears home o2 at 2L - CARDIOVASCULAR Hx Cardio Disorders: Yes Hx Hypertension: Yes Comment:: high cholesterol - NEURO Hx Neuro Disorders: Yes Hx Dizziness: Yes Hx Neuropathy: Yes (LLE) - GI Hx GI Disorders: Yes Hx GI Bleed: Yes Hx Reflux: Yes Hx Nausea/Vomiting: Yes Hx Ulcer: Yes Hx of Polyps: Yes - Hx Genitourinary Disorders: Yes Hx Renal Disease: Yes Comment:: incontinence - stress and urge - ENDOCRINE Hx Endocrine Disorders: No Hx Diabetes: No Hx Thyroid Disease: No - MUSCULOSKELETAL Hx Musculoskeletal Disorders: Yes Hx Arthritis: Yes Hx Back Injury: Yes Comment:: restless legs/Lupus - PSYCH Hx Psych Problems: Yes Hx Depression: Yes - HEMATOLOGY/ONCOLOGY Hx Hematology/Oncology Disorders: Yes Hx Cancer: Yes ("vaginal" carcinoma, colon) Hx Chemotherapy: No Hx Radiation Therapy: No Hx Blood Transfusions: Yes (as a child) Family Medical History Any Significant Family History?: Yes Hx Anxiety: Brother/Sister Hx Cancer: Father, Mother, Brother/Sister Hx Dementia: Brother/Sister Hx Depression: Brother/Sister Hx Diabetes: Brother/Sister Hx Heart Disease: Mother Hx HTN: Mother Hx Resp Disorders: Mother, Brother/Sister Hx Stroke: Brother/Sister H&P Meds/Allergies - Allergies Allergies: Allergies Allergy/AdvReac Type Severity Reaction Status Date / Time aspirin AdvReac Unknown VOMITING Verified 07/03/16 23:22 NSAIDS (Non-Steroidal AdvReac Unknown VOMITING Verified 07/03/16 23:22 Anti-Inflamma - Home Medications Home Medications Medication Instructions Recorded Confirmed Last Taken Albuterol Sulfate [Ventolin Hfa] 1 - 2 puff IH .EVERY 4-6 HOURS PRN 08/25/17 Unknown Benazepril HCl [Lotensin] 20 mg PO ASDIR 08/25/17 08/25/17 Unknown Duloxetine HCl [Cymbalta] 60 mg PO DAILY 08/25/17 08/25/17 Unknown Loratadine 10 mg PO DAILY 08/25/17 08/25/17 Unknown Metoprolol Tartrate [Lopressor] 25 mg PO Q12H 08/25/17 08/25/17 Unknown Zolpidem Tartrate [Ambien] 5 mg PO QHS 08/25/17 08/25/17 Unknown Fluticasone/Salmeterol 250/50 1 each IH Q12H 08/26/17 08/26/17 08/25/17 20:00 [Advair 250/50] Previous Rx's Medication Instructions Recorded Amlodipine Besylate [Norvasc] 10 mg PO DAILY #30 tablet 12/07/15 Gabapentin [Neurontin] 100 mg PO TID #30 capsule 08/26/17 Levofloxacin [Levaquin] 750 mg PO DAILY #4 tab 08/26/17 - Active Medications Active Medications: Current Medications Acetaminophen (Tylenol 500mg Tab) 500 mg PO Q6H PRN PRN Reason: PAIN/TEMP Hydrocodone Bitart/Acetaminophen ([place] 5mg/325mg) 1 each PO Q4H PRN PRN Reason: Analgesia Last Admin: 08/26/17 04:24 Dose: 1 each Albuterol Sulfate () 2.5 mg INH .EVERY 4-6 HOURS PRN PRN Reason: DIFFICULTY IN BREATHING Albuterol/Ipratropium (Duoneb) 3 ml INH RESP.Q4H PRN PRN Reason: Wheezing Last Admin: 08/26/17 04:23 Dose: 3 ml Benazepril HCl (Lotensin) 20 mg PO ASDIR KINJAL Benzonatate (Tessalon) 100 mg PO Q8HR PRN PRN Reason: COUGH Last Admin: 08/26/17 00:10 Dose: 100 mg Duloxetine HCl (Cymbalta) 60 mg PO QD KINJAL Last Admin: 08/26/17 00:06 Dose: 60 mg Gabapentin (Neurontin) 100 mg PO TID KINJAL Last Admin: 08/26/17 00:07 Dose: 100 mg Levofloxacin/Dextrose (Levaquin 750mg Ivpb) 750 mg in 150 mls @ 125 mls/hr IVPB Q24H [facility] Stop: 08/31/17 22:01 Loratadine (Claritin) 10 mg PO DAILY [facility] Metoprolol Tartrate (Lopressor) 25 mg PO Q12H [facility] Last Admin: 08/26/17 00:07 Dose: 25 mg Prochlorperazine Maleate (Compazine) 10 mg PO Q8H [facility] Last Admin: 08/26/17 00:07 Dose: 10 mg Ropinirole HCl (Requip) 1 mg PO QHS [facility] Last Admin: 08/26/17 00:07 Dose: 1 mg Simvastatin (Zocor) 40 mg PO QHS [facility] Sucralfate (Carafate) 1 g PO QIDACHS [facility] Zolpidem Tartrate (Ambien) 5 mg PO QHS [facility] Last Admin: 08/26/17 00:07 Dose: 5 mg Physical Exam - Vital Signs Vital Signs: Vital Signs - Last 24 Hrs Temp Pulse Pulse Resp BP Pulse Ox 08/26/17 05:44 86 22 166/76 08/26/17 05:03 98.8 F 92 H 20 183/96 96 08/26/17 04:23 87 20 97 08/26/17 01:03 98.6 F 80 18 138/98 99 08/25/17 23:00 97.8 F 96 H 18 143/73 100 - General General Appearance: Alert, Oriented x3, Cooperative, No acute distress Limitations: No limitations - Head Head exam: Atraumatic, Normocephalic, Normal inspection - Eye Eye exam: Normal appearance, PERRL - ENT Throat exam: Normal inspection. negative: Tonsillar erythema, Tonsillar exudate - Neck Neck exam: Normal inspection, Full ROM. negative: Tenderness - Respiratory Respiratory exam: Decreased breath sounds (throughout). negative: Respiratory distress - Cardiovascular Cardiovascular Exam: Regular rate, Normal rhythm, Normal heart sounds - GI/Abdominal GI/Abdominal exam: Soft, Normal bowel sounds. negative: Distended, Guarding, Tenderness - Rectal Rectal exam: Heme (-) stool - Extremities Extremities exam: Normal inspection, Full ROM, Normal capillary refill. negative: Tenderness - Back Back exam: Reports: Normal inspection, Full ROM. Denies: Muscle spasm, Rash noted, Tenderness - Neurological Neurological exam: Alert. negative: Motor sensory deficit Results - Labs Result Diagrams: 08/26/17 06:50 08/26/17 06:50 Labs Last 24 Hours: Laboratory Results - last 24 hr 08/26/17 08/26/17 06:50 06:50 WBC 9.3 RBC 3.14 L Hgb 7.2 L Hct 24.8 L MCV 79.0 L MCH 22.9 L MCHC 29.0 L RDW 19.3 H Plt Count 279 MPV 9.6 Neutrophils % 73.0 Eosinophils % Not Reportable Basophils % Not Reportable Lymphocytes 14.0 L Monocytes 2.0 Hypochromasia 2+ Microcytosis 1+ Eosinophil Count 11.0 H Sodium 136 Potassium 4.3 Chloride 102 Carbon Dioxide 22.0 Anion Gap 12.0 BUN 8 Creatinine 0.6 Estimated GFR > 60 Random Glucose 103 Calcium 8.8 - Imaging and Cardiology Chest x-ray Status: Report reviewed VTE H&P Assessment - Risk for VTE Risk for VTE: Yes Risk Level: High Risk Assessment Date: 08/26/17 Risk Assessment Time: : VTE Orders Placed or Will Be Placed: No VTE Reason for No Prophylaxis: Contraindicated Plan - Inpatient Certification Inpatient Certification: Admit to inpatient care: Based on my medical assessment, after consideration of patient's risk factors (age, co-morbidities and patient presenting symptoms and acuity), I expect that this patient will remain in the hospital greater than or equal to two midnights and that the services needed warrant inpatient care because: Patient Risk Factors: [age, lung cancer, GI bleed] Estimated length of stay: [48-72H] The patient may reasonably be expected to be discharged or transferred to a hospital within 96 hours after admission to [facility]. Services needed: [blood transfusion, IV antibiotics] Post hospital care (if known): [] I certify that my determination is in accordance with my understanding of Medicare requirements for reasonable and necessary inpatient services. 08/26/17 07:45 - Detailed Diagnosis and Plan (1) GI bleed Current Visit: Yes Status: Acute Qualifiers: GI bleed type/associated pathology: unspecified gastrointestinal hemorrhage type Qualified Code(s): K92.2 - Gastrointestinal hemorrhage, unspecified Base Code: K92.2 - GASTROINTESTINAL HEMORRHAGE, UNSPECIFIED Comment: 08/26/17 - Improved. HGB up to 7.2 from 4.8 following 2 units of prbc. 7.2 is her baseline hgb. she has been chronically anemic. additionally, I suspect she had a slow bleed as she was not having any tachycardia or hypotension. no further vomiting and no BM today thus far. She denies any abdominal pain or burning. She is tolerating full diet. She does admit to taking some of her 's motrin this week since she ran out of her norco. -counseled that she needs to avoid any NSAID's and went through the generic ones and that she should only take tylenol as needed for her pain. -congratulated her on 2 months wtihout alcohol. -protonix 40mg IV daily -carafate 1gm po qidac -vitals q8H -continue tele (2) Lung mass Current Visit: Yes Status: Acute Base Code: R91.8 - OTHER NONSPECIFIC ABNORMAL FINDING OF LUNG FIELD Comment: 08/26/17- Patient unsure what type of lung cancer, but is following with [facility] oncology team. She has follow up appointment on 08/29/17. CXR shows increase in size of the right paramediastinal mass and probably right sided subpulmonic effusion which may be infectious vs malignant. She was started on levaquin 750mg IV and is feeling better today -continue levaquin 750mg IV daily. went ahead and sent oral medication to pharmacy for discharge planning with holiday -continue O2 at 2L continuous. she is satting 96% and denies SOB -follow up with [facility] oncology as scheduled. encouraged her to contact [facility] [employer] if they need help getting to that appointment (3) DNR (do not resuscitate) Current Visit: No Status: Acute Base Code: Z66 - DO NOT RESUSCITATE Comment: 08/26/17- Patient is a DNR (4) DVT prophylaxis Current Visit: No Status: Acute Base Code: [id number] - Comment: 08/26/17- Patient is high risk for DVt with age, restricted mobility, and active malignancy - SCD's while in bed as lovenox contraindicated with active GI bleed
[2017-08-26] MEDS: SUCRALFATE 1 G/10 ML UD PO SCH ×2 (07:53→12:15)
[2017-08-26] MEDS ORDERED: BREO (FLUTICASONE/VILANTEROL) 200MCG/25MCG INHALER INH SCH (09:45)
[2017-08-26] MEDS ORDERED: BENAZEPRIL 20 MG TABLET PO SCH (10:00)
[2017-08-26] MEDS ORDERED: LORATADINE 10 MG TABLET PO SCH (10:00)
--- NOTE | 2017-08-26 12:50 | Discharge Summary ---
Providers Discharge Summary Date: 08/26/17 Date of admission: 08/25/17 22:50 Expected Date of Discharge: 08/26/17 Attending physician: Jonatan Matthew Primary care physician: KAEL RAMIREZ M.D. Physical Exam - Vital Signs Vital Signs: Vital Signs - Last 24 Hrs Temp Pulse Pulse Resp BP Pulse Ox 08/26/17 10:00 96 H 20 95 08/26/17 09:00 98 H 20 08/26/17 08:37 98.6 F 98 H 20 153/97 95 08/26/17 05:44 86 22 166/76 08/26/17 05:03 98.8 F 92 H 20 183/96 96 08/26/17 04:23 87 20 97 08/26/17 01:03 98.6 F 80 18 138/98 99 08/25/17 23:00 97.8 F 96 H 18 143/73 100 - General General Appearance: Alert, Oriented x3, Cooperative, No acute distress Limitations: No limitations - Head Head exam: Atraumatic, Normocephalic, Normal inspection - Eye Eye exam: Normal appearance, PERRL - ENT Throat exam: Normal inspection. negative: Tonsillar erythema, Tonsillar exudate - Neck Neck exam: Normal inspection, Full ROM. negative: Tenderness - Respiratory Respiratory exam: Decreased breath sounds (throughout). negative: Respiratory distress - Cardiovascular Cardiovascular Exam: Regular rate, Normal rhythm, Normal heart sounds - GI/Abdominal GI/Abdominal exam: Soft, Normal bowel sounds. negative: Distended, Guarding, Tenderness - Rectal Rectal exam: Heme (-) stool - Extremities Extremities exam: Normal inspection, Full ROM, Normal capillary refill. negative: Tenderness - Back Back exam: Reports: Normal inspection, Full ROM. Denies: Muscle spasm, Rash noted, Tenderness - Neurological Neurological exam: Alert. negative: Motor sensory deficit Hospitalization - Hospitalization Admission Diagnosis: 1 GI Bleed with Anemia. 2. R lung mass with probable pneumonia - Problem List/Discharge Diagnosis (1) GI bleed Status: Acute Discharge Diagnosis: GI bleed type/associated pathology: unspecified gastrointestinal hemorrhage type Qualified Code(s): K92.2 - Gastrointestinal hemorrhage, unspecified Base Code: K92.2 - GASTROINTESTINAL HEMORRHAGE, UNSPECIFIED Comment: 08/26/17 - Improved. HGB up to 7.2 from 4.8 following 2 units of prbc. 7.2 is her baseline hgb. she has been chronically anemic. additionally, I suspect she had a slow bleed as she was not having any tachycardia or hypotension. no further vomiting and no BM today thus far. She denies any abdominal pain or burning. She is tolerating full diet. She does admit to taking some of her 's motrin this week since she ran out of her norco. -counseled that she needs to avoid any NSAID's and went through the generic ones and that she should only take tylenol as needed for her pain. -congratulated her on 2 months wtihout alcohol. -plan to discharge home with oncology follow up on 08/29/17 -continue omeprazole 20mg po daily -return to ED for any black/bloody stools (2) Lung mass Status: Acute Base Code: R91.8 - OTHER NONSPECIFIC ABNORMAL FINDING OF LUNG FIELD Comment: 08/26/17- Patient unsure what type of lung cancer, but is following with [facility] oncology team. She has follow up appointment on . CXR shows increase in size of the right paramediastinal mass and probably right sided subpulmonic effusion which may be infectious vs malignant. She was started on levaquin 750mg IV and is feeling better today -continue levaquin 750mg po daily for 5 days -continue O2 at 2L continuous. Has home O2. -follow up with [facility] oncology as scheduled. encouraged her to contact [facility] [employer] if they need help getting to that appointment (3) DNR (do not resuscitate) Status: Acute Base Code: Z66 - DO NOT RESUSCITATE Comment: 08/26/17- Patient is a DNR (4) DVT prophylaxis Status: Acute Base Code: [id number] - Comment: 08/26/17- Patient is high risk for DVt with age, restricted mobility, and active malignancy - SCD's while in bed as lovenox contraindicated with active GI bleed - Hospitalization Course Disposition: Home, Self-Care Hospital Course: 66yo female with CC of cough. She has history of lung cancer, copd, alcoholism, GI bleed, lupus, htn, SHANNON, HLD, GERD, hiatal hernia, arthritis, depression, RLS , chronic low back pain, and is current pack a day smoker. Patient presented to the ED due to coughing and being mildly SOB for about a week. She also has been having increased rib and hip pain because she ran out of her [place] last week. She has had some colored sputum but denies any fever, chills, AP, or black stools. She was vomiting a few days ago and reports some dark, coffee ground vomitus. While in the ED, patient was found to have hgb of 4.8. She was neither hypotensive or tachycardic with rat of 89 and pressure of 124/104. Her CXR showed increase in size of her right paramediastinal mass and probable right subpulmonic effusion. No other acute airspace disease. Her oxygen saturation was 100%. Patient was given 2 units of pRBC's, started on levaquin 750mg for possible pneumonia and admitted. 08/26/17- Patient states she is feeling much better today. she says she is no longer coughing like she had been and denies feeling short of breath. She says her doctor wants her using her home oxygen at all times which she has been doing. since her last visit in March, patient has established with [facility] for her lung cancer. She has an appointment with them scheduled on 08/29/17. She will be starting chemotherapy and radiation. She denies any further vomiting since a few days ago and tolerated her breakfast well today. She has not had a BM today, but her states she may have had a darker than normal stool yesterday. She denies any abdominal pain, epigastric burning. Says she quit drinking alcohol 2 months ago. pcp: Bruno at [facility]: [facility] Procedures: Cardiology Procedures 08/25/17 23:13 EKG NOW Abnormal Labs: Abnormal Lab Results 08/26/17 Range/Units 06:50 RBC 3.14 L (3.80-5.40) M/uL Hgb 7.2 L (11.6-16.0) gm/dl Hct 24.8 L (35.0-47.0) % MCV 79.0 L (81-97) fl MCH 22.9 L (27-33) pg MCHC 29.0 L (32-36) g/dl RDW 19.3 H (11.5-14.5) % Lymphocytes 14.0 L (16-45) % Eosinophil Count 11.0 H (0-6) % Condition at Discharge: (2) Stable Discharge Medications - Discharge Medications Prescriptions: Gabapentin [Neurontin] 100 mg PO TID #30 capsule Levofloxacin [Levaquin] 750 mg PO DAILY #4 tab Home Medications: Ambulatory Orders Ropinirole HCl [Requip] 1 mg PO QHS 09/16/15 [Last Taken 12/30/16] Simvastatin [Zocor] 40 mg PO QHS 09/16/15 [Last Taken 12/30/16] Albuterol Sulfate 0.083% [Neb] 3 ml NEB .EVERY 4-6 HOURS PRN 12/02/15 [Last Taken Unknown] Magnesium Oxide [Fleming] 500 mg PO TID 12/02/15 [Last Taken 12/02/15] Amlodipine Besylate [Norvasc] 10 mg PO DAILY #30 tablet 12/07/15 [Last Taken ] Albuterol Sulfate [Ventolin Hfa] 1 - 2 puff IH .EVERY 4-6 HOURS PRN 08/25/17 [ Last Taken Unknown] Benazepril HCl [Lotensin] 20 mg PO ASDIR 08/25/17 [Last Taken Unknown] Duloxetine HCl [Cymbalta] 60 mg PO DAILY 08/25/17 [Last Taken Unknown] Loratadine 10 mg PO DAILY 08/25/17 [Last Taken Unknown] Metoprolol Tartrate [Lopressor] 25 mg PO Q12H 08/25/17 [Last Taken Unknown] Zolpidem Tartrate [Ambien] 5 mg PO QHS 08/25/17 [Last Taken Unknown] Fluticasone/Salmeterol 250/50 [Advair 250/50] 1 each IH Q12H 08/26/17 [Last Taken 08/25/17 20:00] Gabapentin [Neurontin] 100 mg PO TID #30 capsule 08/26/17 [Last Taken Unknown] Levofloxacin [Levaquin] 750 mg PO DAILY #4 tab 08/26/17 [Last Taken Unknown] Discharge Plan - Discharge Instructions Activity at Discharge: Resume Usual Activities As Tolerated Diet at Discharge: Advance to Usual Diet Instructions: Gastrointestinal Bleeding (DC), Diet for Stomach Ulcers and Gastritis (GEN) Additional Instructions: Please follow up with [facility] as scheduled. Call your insurance company to see if they can assist with transportation. Continue levaquin 750mg by mouth daily. Your next dose should be taken tonight continue home oxygen at all times Follow diet for gastritis and ulcers and do not take any NSAID's including motrin, ibuprofen, advil, alleve, mobic for pain control. You may take over the counter tylenol but do not take more than 4 grams daily. please call with any questions or concerns Return to ED for any recurrence of dark stools or vomiting blood or worsening breathing symptoms Quality Measures - Quality Measures Quality Measures: Documentation of Current Medications in Medical Record, Screening for High Blood Pressure and F/U Documented - Current Medications Quality Measure: Measure #130: Documentation of Current Medications Documentation of Current Medications: <Current Medications Documented/Reviewed> [[id number]] - Blood Pressure Screening Quality Measure: Screening for High Blood Pressure and Follow-Up Documented Does Patient Have Any of the Following: Active Dx of HTN Blood Pressure Classification: Hypertensive Reading Systolic Measurement: 121 Diastolic Measurement: 104 Screening for High Blood Pressure: Patient Exclusion, Hx of HTN [G9744] - Elder Abuse Suspicion Index EASI Reference Information: Aracelis HALL, Beryl C, Nithin D, Onofre Lares.Development and validation of a tool to assist physicians identification of elder abuse: The Elder Abuse Suspicion Index (EASI ). Journal of Elder Abuse and Neglect, 2008; 20 (3): 276-300.
[2017-08-26] MEDS ORDERED: 0.9 % SODIUM CHLORIDE 10ML SYR IVP ONE (15:55)
[2017-08-26] MEDS ORDERED: HEPARIN SODIUM FLUSH 100 UNITS/ML SYR 5ML IV ONE ×2 (15:55)
[2017-08-26] MEDS ORDERED: LEVOFLOXACIN/D5W 750 MG/150 ML BAG IVPB SCH (22:00)
[2017-08-26] MEDS ORDERED: SIMVASTATIN 20 MG TABLET PO SCH (22:00)
== END 2017-08-26 16:10 | disposition home or self-care (01) | DRG 378 ==
LOC: ER 19:53 → MEDSURG 22:50
PROVIDERS: ADMIT Internal Medicine; ATTEND Internal Medicine
PROC: 30233N1 Transfusion of Nonautologous Red Blood Cells into Peripheral Vein, Percutaneous Approach (ICD-10-PCS; principal; 2017-08-25)
DX: K92.2 Gastrointestinal hemorrhage, unspecified (principal); D62 Acute posthemorrhagic anemia; R91.8 Other nonspecific abnormal finding of lung field; Z66 Do not resuscitate; Z85.118 Personal history of other malignant neoplasm of bronchus and lung; J44.9 Chronic obstructive pulmonary disease, unspecified; Z72.0 Tobacco use; G25.81 Restless legs syndrome; F10.20 Alcohol dependence, uncomplicated; K44.9 Diaphragmatic hernia without obstruction or gangrene
CPT/HCPCS: 85730; 85610; 80048; 85027; 86900; 86901; 86850; 71020; 94640; 36430; P9016; J1956; 93005; 93010; 96365; 99223; 99239; 99285; C9113